=== PATIENT | male | born 1940 | race Two or more races ===

== ENCOUNTER 2017-02-01 22:40 | Emergency (ER) | payer MEDICARE, OTHER ==
[2017-02-01] MEDS ORDERED: FUROSEMIDE INJ/PF 100 MG/10 ML SDV IV ONE (23:04)
[2017-02-01] MEDS ORDERED: FUROSEMIDE INJ/PF 100 MG/10 ML SDV ONE (23:05)
--- NOTE | 2017-02-01 23:14 | ER Document Report ---
ED General - General Chief Complaint: Weakness Stated Complaint: WEAKNESS Time Seen by Provider: 02/01/17 22:59 Notes: Patient is a 76-year-old male with a past medical history of CHF, hypertension, hyperlipidemia, who presents with 3 days of progressively worsening generalized malaise and shortness of breath. Patient states that he feels generally unwell that "I just have no energy". He does know that he has had significant weight gain over the last 3 weeks. Does admit to a significant amount of dietary indiscretions with high sodium content ingestion such as tomato juice. He has been taking his bumetanide and metolazone as directed. He states this feels similar to when he has had volume overload in the past. He has not followed up with his primary care doctor. He denies any associated chest pain. He has not noted that anything seems to improve or worsen his symptoms. - Related Data Allergies/Adverse Reactions: No Known Allergies Allergy (Unverified 02/01/17 22:56) Past Medical History - General Information source: Patient - Social History Smoking Status: Former Smoker Frequency of alcohol use: None Drug Abuse: None Lives with: Spouse/Significant other Family History: Reviewed & Not Pertinent Patient has suicidal ideation: No Patient has homicidal ideation: No Renal/ Medical History: Denies: Hx Peritoneal Dialysis Review of Systems - Review of Systems Notes: Constitutional: Negative for fever. HENT: Negative for sore throat. Eyes: Negative for visual changes. Cardiovascular: Negative for chest pain. Respiratory: Positive for shortness of breath. Gastrointestinal: Negative for abdominal pain, vomiting or diarrhea. Genitourinary: Negative for dysuria. Musculoskeletal: Negative for back pain. Skin: Negative for rash. Neurological: Negative for headaches, weakness or numbness. 10 point ROS negative except as marked above and in HPI. Physical Exam - Vital signs Vitals: Temp Pulse Resp BP Pulse Ox 97.8 F 83 23 H 111/72 90 L 02/01/17 22:42 02/01/17 22:42 02/01/17 22:42 02/01/17 22:42 02/01/17 22:42 Interpretation: Hypoxic, Tachypneic Notes: PHYSICAL EXAMINATION: GENERAL: Appears slightly uncomfortable but no acute distress HEAD: Atraumatic, normocephalic. EYES: Pupils equal round and reactive to light, extraocular movements intact, sclera anicteric, conjunctiva are normal. ENT: nares patent, oropharynx clear without exudates. Moist mucous membranes. NECK: Normal range of motion, supple without lymphadenopathy LUNGS: Diminished breath sounds at the bases bilaterally. Mild tachypnea. HEART: Regular rate and rhythm without murmurs ABDOMEN: Edematous abdominal wall, nontender, normoactive bowel sounds. No guarding, no rebound. No masses appreciated. EXTREMITIES: Normal range of motion, 4+ pitting edema that is equal and symmetric in the bilateral lower extremities NEUROLOGICAL: No focal neurological deficits. Moves all extremities spontaneously and on command. PSYCH: Normal mood, normal affect. SKIN: Warm, Dry, normal turgor, no rashes or lesions noted. Course - Re-evaluation Re-evalutation: 02/01/17 23:12 Patient presents with signs and symptoms consistent with significant volume overload in the setting of CHF. Patient has mild hypoxemia saturating 88% on room air, 92-94% on 2 L by nasal cannula. No acute respiratory distress. Bedside ultrasound does not show any significant B-lines, although he does appear to have diffuse hypokinesis on a bedside echocardiogram. He reports his last ejection fraction was apparently 58% but on a cursory glance on a bedside it does not appear that he continues to have a normal ejection fraction. IVC is grossly distended. His abdomen is distended, but there is no evidence of ascites. He has 4+ pitting edema in the bilateral lower extremities. Patient reports his normal weight is 100 kg although today he is a full 125 kg. He has been taking bumetanide as well as metolazone without relief. Upon arrival, a stat portal chest x-ray was obtained that showed cardiomegaly and vascular congestion but no overt pulmonary edema. Will provide 160 mg of IV Lasix which is a doubling of patient's home dose, fluid restrict the patient. Will also obtain laboratories and reassess. Patient does not yet meet criteria for BiPAP at this time. 02/01/17 23:56 Patient continues to ventilate without difficulty, maintaining 97% oxygen saturation on 2 L by nasal cannula, blood pressure 109 on 95. He is awake and talking to me without any distress. He is already beginning to urinate. His labs unfortunately do show some market derangements. ProBNP is 19,800, troponin is 0.229. His creatinine is also markedly elevated at 4.8 and patient states his baseline creatinine is a partially 2.2-2.3. I suspect that all of this is secondary to a CHF exacerbation with marked volume overload. Unfortunately given his troponin elevation I am unable to keep him here at this hospital and have contacted [facility] for transfer. 02/02/17 00:14 Patient has been accepted for transfer by at [facility]. 02/02/17 0205 Patient continues to rest comfortably, stable for transfer - Vital Signs Vital signs: Temp Pulse Resp BP Pulse Ox 97.4 F 83 19 118/77 88 L 02/02/17 02:08 02/01/17 22:42 02/02/17 02:01 02/02/17 01:46 02/02/17 02:01 - Laboratory Result Diagrams: 02/01/17 22:57 02/01/17 22:46 Laboratory results interpreted by me: 02/01/17 02/01/17 02/01/17 22:46 22:46 22:46 RBC Hgb Hct RDW Plt Count PT 20.8 H APTT 41.7 H Chloride 90 L Carbon Dioxide 32 H BUN 113 H Creatinine 4.80 H Est GFR ( Amer) 14 L Est GFR (Non-Af Amer) 12 L Direct Bilirubin 0.7 H NT-Pro-B Natriuret Pep 56712 H 02/01/17 22:57 RBC 4.06 L Hgb 12.3 L Hct 37.1 L RDW 15.0 H Plt Count 122 L PT APTT Chloride Carbon Dioxide BUN Creatinine Est GFR ( Amer) Est GFR (Non-Af Amer) Direct Bilirubin NT-Pro-B Natriuret Pep - Diagnostic Test Radiology reviewed: Image reviewed, Reports reviewed Radiology results interpreted by me: 02/02/17 03:37 Chest x-ray: Cardiac enlargement. Vascular congestion but no overt pulmonary edema. - EKG Interpretation by Me Additional EKG results interpreted by me: 02/02/17 03:38 Sinus rhythm. Rate 83. Frequent premature ventricular contractions. No ST elevations or depressions. Prolonged QTC at 522. Discharge - Discharge Clinical Impression: Volume overload Qualifiers: Hypervolemia type: unspecified Qualified Code(s): E87.70 - Fluid overload, unspecified CHF exacerbation Qualifiers: Congestive heart failure type: unspecified congestive heart failure type Qualified Code(s): I50.9 - Heart failure, unspecified Acute on chronic renal failure Qualifiers: Acute renal failure type: unspecified Chronic kidney disease stage: unspecified stage Qualified Code(s): N17.9 - Acute kidney failure, unspecified; N18.9 - Chronic kidney disease, unspecified; N18.9 - Chronic kidney disease, unspecified Condition: Fair Disposition: [facility]
[2017-02-01 23:19] LABS: ABSOLUTE EOSINOPHILS # (AUTO) 0.1 10^3/uL (0.0-0.6); ABSOLUTE MONOCYTES (AUTO) 0.6 10^3/uL (0.1-1.4); BASOPHILS % (AUTO) 0.6 % (0-2); EOSINOPHILS % (AUTO) 1.6 % (0-6); HEMATOCRIT 37.1 % (37.9-51.0); HEMOGLOBIN 12.3 g/dL (13.5-17.0); HGB HCT DIFFERENCE -0.2; LYMPHOCYTES % (AUTO) 13.3 % (13-45); MEAN CORPUSCULAR HEMOGLOBIN 30.4 pg (27.0-33.4); MEAN CORPUSCULAR HGB CONC 33.3 g/dL (32.0-36.0); MEAN CORPUSCULAR VOLUME 91 fl (80-97); MONOCYTES % (AUTO) 7.8 % (3-13); RED BLOOD COUNT 4.06 10^6/uL (4.35-5.55); SEGMENTED NEUTROPHILS % (AUTO) 76.7 % (42-78); WHITE BLOOD COUNT 7.9 10^3/uL (4.0-10.5)
[2017-02-01 23:19] LABS: ALANINE AMINOTRANSFERASE 37 U/L (21-72); ALBUMIN 3.9 g/dL (3.5-5.0); ALKALINE PHOSPHATASE 84 U/L (38-126); ANION GAP 18 (5-19); ASPARTATE AMINO TRANSFERASE 29 U/L (17-59); BILIRUBIN,DIRECT 0.7 mg/dL (0.0-0.4); BILIRUBIN,TOTAL 0.9 mg/dL (0.2-1.3); BLOOD UREA NITROGEN 113 mg/dL (7-20); CALCIUM 8.6 mg/dL (8.4-10.2); CARBON DIOXIDE 32 mmol/L (22-30); CHLORIDE 90 mmol/L (98-107); GLUCOSE 104 mg/dL (75-110); POTASSIUM 4.1 mmol/L (3.6-5.0); SODIUM 140.2 mmol/L (137-145); TOTAL PROTEIN 6.6 g/dL (6.3-8.2)
[2017-02-01 23:34] LABS: TROPONIN I 0.229 ng/mL
--- NOTE | 2017-02-01 23:46 | RADIOLOGY REPORT (SQ) ---
EXAM DESCRIPTION: CHEST SINGLE VIEW COMPLETED DATE/TIME: 02/01/2017 11:11 pm REASON FOR STUDY: SOB COMPARISON: None. EXAM PARAMETERS: NUMBER OF VIEWS: One view. TECHNIQUE: Single frontal radiographic view of the chest acquired. RADIATION DOSE: NA LIMITATIONS: None. FINDINGS: LUNGS AND PLEURA: Mild interstitial markings. Small patchiness of the lateral aspect of t he right inferior chest. MEDIASTINUM AND HILAR STRUCTURES: No masses. Contour normal. HEART AND VASCULAR STRUCTURES: Moderate enlargement of the cardiac silhouette. Atherosclerosis. BONES: No acute findings. HARDWARE: None in the chest. OTHER: No other significant finding. IMPRESSION: Small right lower lobar pneumonia/atelectasis. Moderate enlargement of the cardiac silh ouette. TECHNICAL DOCUMENTATION: JOB ID: [id number] [employer]- All Rights Reserved
[2017-02-02 00:06] LABS: PROTHROMBIN TIME 20.8 SEC (11.4-15.4)
[2017-02-02 00:07] LABS: PARTIAL THROMBOPLASTIN TIME 41.7 SEC (23.5-35.8)
[2017-02-02 02:08] VITALS: BP 118/77
--- NOTE | 2017-02-02 14:02 | EKG REPORT ---
SEVERITY:- ABNORMAL ECG - SINUS OR ECTOPIC ATRIAL TACHYCARDIA RUN OF VENTRICULAR PREMATURE COMPLEXES RIGHT BUNDLE BRANCH BLOCK INFERIOR INFARCT, AGE INDETERMINATE CONSIDER ANTERIOR INFARCT : Confirmed by: Mini Hernández MD 02-Feb-2017 14:02:06
== END 2017-02-02 02:12 | disposition short-term general hospital (02) ==
LOC: ER 22:40
DX: E87.70 Fluid overload, unspecified (principal); N17.9 Acute kidney failure, unspecified; N18.9 Chronic kidney disease, unspecified; I50.9 Heart failure, unspecified; R53.1 Weakness; R06.02 Shortness of breath; I11.0 Hypertensive heart disease with heart failure; E78.5 Hyperlipidemia, unspecified
CPT/HCPCS: 93005; 99285; 96374; 36415; 85025; 85610; 85730; 80053; 84484; 83880; 71010; 93010; J1940

== ENCOUNTER → 2017-03-20 | Outpatient (CLI) | payer MEDICARE, OTHER ==
--- NOTE | 2017-03-20 16:46 | RADIOLOGY REPORT (SQ) ---
EXAM DESCRIPTION: ABDOMEN 2 VIEWS COMPLETED DATE/TIME: 03/20/2017 4:38 pm REASON FOR STUDY: IDENTIFY POSITION OF TIP OF DD CATH COMPARISON: None. NUMBER OF VIEWS: Two views. TECHNIQUE: Supine and erect/decubitus radiographic images of the abdomen acquired. LIMITATIONS: None. FINDINGS: FREE AIR: None. No abnormal gas collections. LUNG BASES: Clear. BOWEL GAS PATTERN: Nonobstructive pattern. No dilated loops or air fluid levels. CALCIFICATIONS: No suspicious calcifications. SOFT TISSUES: No gross mass or suggestion of organomegaly. HARDWARE: There is a peritoneal dialysis catheter in place. It is coiled in the right lower quadrant . BONES: No acute fracture. No worrisome bone lesions. OTHER: No other significant finding. IMPRESSION: No acute findings. A peritoneal dialysis catheter is in place and is coiled in the righ t lower quadrant. TECHNICAL DOCUMENTATION: JOB ID: [id number] [employer]- All Rights Reserved
== END ==
LOC: RAD 15:51
PROVIDERS: ATTEND Internal Medicine Nephrology
DX: I95.9 Hypotension, unspecified (principal)
CPT/HCPCS: 74019

== ENCOUNTER 2017-03-21 13:51 | Inpatient (IN) | payer MEDICARE, OTHER ==
--- NOTE | 2017-03-21 16:15 | ER Document Report ---
ED General - General Chief Complaint: Abdominal Swelling Stated Complaint: ABDOMINAL SWELLING Time Seen by Provider: 03/21/17 15:51 Mode of Arrival: Wheelchair Information source: Patient, [facility] Records Notes: This 76-year-old male patient was sent to the emergency room from [facility] to be evaluated for problems with his peritoneal dialysis catheter. The patient was seen here on 02/02/2017, found to be in renal failure with congestive heart failure. He was transferred to [facility] where he had hemodialysis for a while. He was put on a fast track peritoneal dialysis protocol. He was discharged home on 03/17/2017. He went to [facility] on Saturday and had some dialysate placed but by history it did not come back out. It is confusing when he went again, but he at least did go today and was found to have a leak from one of the peritoneal dialysis ports. I called Dr. Alfonso Olivares for clarification and he stated that the patient needed to have a PermCath placed which could be done tomorrow morning and then hemodialysis started tomorrow. He requested I get the patient admitted to the hospitalist service. He is aware that the patient is a little hypotensive compared to baseline, but is otherwise asymptomatic. TRAVEL OUTSIDE OF THE [place] IN LAST 30 DAYS: No - Related Data Allergies/Adverse Reactions: No Known Allergies Allergy (Verified 03/21/17 13:53) Past Medical History - General Information source: Patient, [facility] Records - Social History Smoking Status: Never Smoker Cigarette use (# per day): No Chew tobacco use (# tins/day): No Smoking Education Provided: No Frequency of alcohol use: None Drug Abuse: None Occupation: Retired Lives with: Family Family History: Reviewed & Not Pertinent Patient has suicidal ideation: No Patient has homicidal ideation: No - Past Medical History Cardiac Medical History: Reports: Hx Atrial Fibrillation - Currently no aspirin , Coumadin, or other antiplatelet medication, Hx Congestive Heart Failure, Other - Venous insufficiency Pulmonary Medical History: Reports: None EENT Medical History: Reports: None Neurological Medical History: Reports: None Endocrine Medical History: Reports: None Renal/ Medical History: Reports: Hx End Stage Renal Disease, Hx Peritoneal Dialysis GI Medical History: Reports: None Musculoskeltal Medical History: Reports Hx Arthritis Psychiatric Medical History: Reports: None Past Surgical History: Reports: Hx Cholecystectomy, Hx Orthopedic Surgery - Bone spurs removed from the cervical spine Review of Systems - Review of Systems Constitutional: No symptoms reported EENT: No symptoms reported Cardiovascular: No symptoms reported Respiratory: No symptoms reported Gastrointestinal: See HPI Genitourinary: No symptoms reported Musculoskeletal: Joint pain, Leg swelling, Ankle swelling Skin: Other - Does have some bandages on the left lower extremity Hematologic/Lymphatic: No symptoms reported Neurological/Psychological: No symptoms reported Physical Exam - Vital signs Vitals: Temp Pulse Resp BP Pulse Ox 97.3 F 81 18 94/50 L 94 03/21/17 14:13 03/21/17 14:13 03/21/17 14:13 03/21/17 14:13 03/21/17 14:13 Interpretation: Hypotensive - General General appearance: Appears well, Alert In distress: None - HEENT Head: Normocephalic, Atraumatic Eyes: Normal Pupils: PERRL Neck: Normal - Respiratory Respiratory status: No respiratory distress Breath sounds: Normal - Cardiovascular Rhythm: Regular Heart sounds: Normal auscultation Murmur: No - Abdominal Inspection: Obese Distension: No distension Tenderness: Nontender, Other - Patient has peritoneal dialysis catheter in place - Back Back: Normal - Extremities General upper extremity: Normal inspection General lower extremity: Other - There are some chronic skin thickening and erythematous changes to the lower legs with some bandages on the left lower leg. There is some edema to the lower extremities. Knee: Other - There are osteoarthritic changes to the knees - Neurological Neuro grossly intact: Yes - The patient does seem to have some mild dementia - Psychological Associated symptoms: Normal affect, Normal mood Course - Vital Signs Vital signs: Temp Pulse Resp BP Pulse Ox 97.3 F 81 18 94/50 L 94 03/21/17 14:13 03/21/17 14:13 03/21/17 14:13 03/21/17 14:13 03/21/17 14:13 - Laboratory Result Diagrams: 03/21/17 16:29 03/21/17 16:29 Laboratory results interpreted by me: 03/21/17 03/21/17 03/21/17 16:29 16:29 16:29 RBC 3.35 L Hgb 10.3 L Hct 31.1 L RDW 17.3 H Plt Count 83 L Sodium 131.0 L Potassium 5.5 H Chloride 87 L Carbon Dioxide 21 L Anion Gap 23 H BUN 137 H Creatinine 12.65 H Est GFR ( Amer) 5 L Est GFR (Non-Af Amer) 4 L Calcium 8.1 L Magnesium 2.6 H Direct Bilirubin 1.3 H Alkaline Phosphatase 129 H CK-MB (CK-2) 26.30 H NT-Pro-B Natriuret Pep 28590 H - Diagnostic Test Radiology reviewed: Image reviewed, Reports reviewed - Cardiomegaly, nothing acute - EKG Interpretation by Me EKG shows normal: Sinus rhythm, [place], Intervals, QRS Complexes, ST-T Waves Rate: Normal - 81 Rhythm: NSR [place]/QRS: RBBB When compared to previous EKG there are: No significant change - Compared to - Consults Dr. Olivares Consulted provider: will see as inpatient - Request the patient be admitted to hospitalist service, and the patient get a PermCath placed by tomorrow morning for hemodialysis. Dr. Kin Brown Time consulted: 18:50 Consulted provider: will see as inpatient - Will see in the morning to place a PermCath for dialysis Dr. Salas Time consulted: 19:30 Consulted provider: will come to ER Discharge - Discharge Clinical Impression: Chronic renal failure, stage 5 Disorder of peritoneal dialysis catheter Qualifiers: Encounter type: initial encounter Qualified Code(s): T85.9XXA - Unspecified complication of internal prosthetic device, implant and graft, initial encounter Hypotension Qualifiers: Hypotension type: other hypotension type Qualified Code(s): I95.89 - Other hypotension Condition: Good Disposition: ADMITTED INPATIENT Admitting Provider: Hospitalist Unit Admitted: Telemetry
[2017-03-21 16:55] LABS: ABSOLUTE BASOPHILS # (AUTO) 0.1 10^3/uL (0.0-0.2); ABSOLUTE EOSINOPHILS # (AUTO) 0.1 10^3/uL (0.0-0.6); ABSOLUTE LYMPHOCYTES (AUTO) 0.8 10^3/uL (0.5-4.7); ABSOLUTE MONOCYTES (AUTO) 0.6 10^3/uL (0.1-1.4); ABSOLUTE NEUT (AUTO) 4.1 10^3/uL (1.7-8.2); BASOPHILS % (AUTO) 1.3 % (0-2); EOSINOPHILS % (AUTO) 1.2 % (0-6); HEMATOCRIT 31.1 % (37.9-51.0); HEMOGLOBIN 10.3 g/dL (13.5-17.0); LYMPHOCYTES % (AUTO) 14.2 % (13-45); MEAN CORPUSCULAR HEMOGLOBIN 30.6 pg (27.0-33.4); MEAN CORPUSCULAR VOLUME 93 fl (80-97); MONOCYTES % (AUTO) 10.6 % (3-13); RED BLOOD COUNT 3.35 10^6/uL (4.35-5.55); RED CELL DISTRIBUTION WIDTH 17.3 % (11.5-14.0); SEGMENTED NEUTROPHILS % (AUTO) 72.7 % (42-78); TOTAL CELLS COUNTED % (AUTO) 100 %; WHITE BLOOD COUNT 5.7 10^3/uL (4.0-10.5)
--- NOTE | 2017-03-21 16:58 | RADIOLOGY REPORT (SQ) ---
EXAM DESCRIPTION: CHEST PA/LAT COMPLETED DATE/TIME: 03/21/2017 4:35 pm REASON FOR STUDY: weak, PD cath leak, hypotension COMPARISON: None. EXAM PARAMETERS: NUMBER OF VIEWS: two views TECHNIQUE: Digital Frontal and Lateral radiographic views of the chest acquired. RADIATION DOSE: NA LIMITATIONS: none FINDINGS: LUNGS AND PLEURA: No opacities, masses or pneumothorax. No pleural effusion. MEDIASTINUM AND HILAR STRUCTURES: No masses or contour abnormalities. HEART AND VASCULAR STRUCTURES: Cardiac silhouette is enlarged. BONES: No acute findings. HARDWARE: None in the chest. OTHER: No other significant finding. IMPRESSION: Cardiomegaly. No acute consolidations or pleural effusions are identified TECHNICAL DOCUMENTATION: JOB ID: [id number] [employer]- All Rights Reserved
[2017-03-21 17:25] LABS: PLATELET COUNT 83 10^3/uL (150-450)
[2017-03-21 17:26] LABS: ALANINE AMINOTRANSFERASE 40 U/L (21-72); ALBUMIN 3.8 g/dL (3.5-5.0); ALKALINE PHOSPHATASE 129 U/L (38-126); ASPARTATE AMINO TRANSFERASE 50 U/L (17-59); BILIRUBIN,DIRECT 1.3 mg/dL (0.0-0.4); BILIRUBIN,TOTAL 1.3 mg/dL (0.2-1.3); CALCIUM 8.1 mg/dL (8.4-10.2); CARBON DIOXIDE 21 mmol/L (22-30); CHLORIDE 87 mmol/L (98-107); CREATINE KINASE 129 U/L (55-170); GLUCOSE 76 mg/dL (75-110); MAGNESIUM 2.6 mg/dL (1.6-2.3); POTASSIUM 5.5 mmol/L (3.6-5.0); TOTAL PROTEIN 6.3 g/dL (6.3-8.2)
[2017-03-21 17:38] LABS: CREATINE KINASE MB 26.3 ng/mL (<4.55); TROPONIN I 0.147 ng/mL
[2017-03-21 17:40] LABS: ANION GAP 23 (5-19); BLOOD UREA NITROGEN 137 mg/dL (7-20)
--- NOTE | 2017-03-21 18:44 | EKG REPORT ---
SEVERITY:- ABNORMAL ECG - SINUS RHYTHM RIGHT BUNDLE BRANCH BLOCK INFERIOR INFARCT, AGE INDETERMINATE CONSIDER ANTERIOR INFARCT : Confirmed by: Peyman Porter MD 21-Mar-2017 18:43:07
[2017-03-21] MEDS ORDERED: ACETAMINOPHEN 325 MG TABLET PO ONE (19:39)
[2017-03-21 22:49] LABS: AMORPHOUS SEDIMENT,URINE TRACE /HPF; APPEARANCE,URINE CLOUDY; BILIRUBIN,URINE SMALL (NEGATIVE); COLOR,URINE YELLOW; GLUCOSE, URINE NEGATIVE (NEGATIVE); KETONES,URINE NEGATIVE (NEGATIVE); LEUKOCYTE ESTERASE,URINE TRACE (NEGATIVE); NITRITE,URINE NEGATIVE (NEGATIVE); PROTEIN,URINE 100 mg/dL (NEGATIVE); URINE SPECIFIC GRAVITY 1.016; UROBILINOGEN,URINE NEGATIVE mg/dL (<2.0)
[2017-03-22] MEDS ORDERED: SILVER SULFADIAZINE 1% CREAM 25 GM TP ONE (01:00)
[2017-03-22] MEDS: ACETAMINOPHEN 325 MG TABLET PO PRN ×3 (01:07→19:03)
[2017-03-22] MEDS: LEVOTHYROXINE SODIUM 0.05 MG TABLET PO SCH (05:39)
[2017-03-22] MEDS: MIDODRINE HCL 5 MG TABLET PO SCH ×3 (05:39→23:50)
--- NOTE | 2017-03-22 08:01 | PDOC H&P ---
History of Present Illness Admission Date/PCP: 03/21/17 19:56 Berenice ARREOLA MD History of Present Illness: ARPITA EUGENE JR is a 76 year old male with past medical history of end-stage renal disease, A. fib, CHF, hypothyroidism, chronic hypotension on midodrine, hyperlipidemia who presents to the emergency department for needed hemodialysis. He reports that he got home on Saturday from [facility], and his PD catheter has been leaking. He reports that he has been nauseated. Patient is to be set up for hemodialysis per reports from nephrology. Past Medical History Cardiac Medical History: Reports: Atrial Fibrillation - Currently no aspirin, Coumadin, or other antiplatelet medication, Congestive Heart Failure, Other - Venous insufficiency Pulmonary Medical History: Reports: None EENT Medical History: Reports: None Neurological Medical History: Reports: None Endocrine Medical History: Reports: None Renal/ Medical History: Reports: End Stage Renal Disease GI Medical History: Reports: None Musculoskeltal Medical History: Reports: Arthritis Psychiatric Medical History: Reports: None Past Surgical History Past Surgical History: Reports: Cholecystectomy, Orthopedic Surgery - Bone spurs removed from the cervical spine Social History Lives with: Family Smoking Status: Never Smoker - Advance Directive Resuscitation Status: Full Code Surrogate healthcare decision maker:: Ochoa, Family History Family History: COPD Parental Family History Reviewed: Yes Children Family History Reviewed: Yes Sibling(s) Family History Reviewed.: Yes Medication/Allergy Home Medications: Atorvastatin Calcium [Lipitor 40 mg Tablet] 40 mg PO QHS 03/21/17 Calcium Acetate [Phoslo 667 Mg Capsule] 1,334 mg PO MEALS 03/21/17 Folic Acid/Vit B Complex and C [Dialyvite Tablet] 1 tab PO DAILY 03/21/17 L. Rhamnosus GG/Inulin [Culturelle Capsule] 1 each PO DAILY 03/21/17 Levothyroxine Sodium [Synthroid 50 Mcg Tablet] 50 mcg PO Q6AM 03/21/17 Midodrine HCl [Proamatine 5 Mg Tablet] 5 mg PO Q8 03/21/17 Ropinirole HCl [Requip 2 Mg Tablet] 5 mg PO Q12 03/21/17 Allergies/Adverse Reactions: No Known Allergies Allergy (Verified 03/21/17 13:53) Review of Systems Constitutional: PRESENT: fatigue. ABSENT: chills, fever(s), headache(s), weight gain, weight loss Eyes: ABSENT: visual disturbances Ears: ABSENT: hearing changes Cardiovascular: ABSENT: chest pain, dyspnea on exertion, edema, orthropnea, palpitations Respiratory: ABSENT: cough, hemoptysis Gastrointestinal: PRESENT: abdominal pain, nausea, vomiting. ABSENT: constipation, diarrhea, hematemesis, hematochezia Genitourinary: ABSENT: dysuria, hematuria Musculoskeletal: ABSENT: joint swelling Integumentary: ABSENT: rash, wounds Neurological: ABSENT: abnormal gait, abnormal speech, confusion, dizziness, focal weakness, syncope Psychiatric: ABSENT: anxiety, depression, homidical ideation, suicidal ideation Endocrine: ABSENT: cold intolerance, heat intolerance, polydipsia, polyuria Hematologic/Lymphatic: ABSENT: easy bleeding, easy bruising Physical Exam Vital Signs: Temp Pulse Resp BP Pulse Ox 97.4 F 56 L 22 H 92/74 L 94 03/21/17 23:42 03/21/17 23:42 03/21/17 23:42 03/21/17 23:42 03/21/17 23:42 Intake & Output 03/20/17 03/21/17 03/22/17 06:59 06:59 06:59 Weight 111.3 kg General appearance: PRESENT: mild distress, obese, well-developed, well- nourished Head exam: PRESENT: atraumatic, normocephalic Eye exam: PRESENT: conjunctiva pink, EOMI, PERRLA. ABSENT: scleral icterus Ear exam: PRESENT: normal external ear exam Mouth exam: PRESENT: moist, tongue midline Neck exam: PRESENT: JVD. ABSENT: lymphadenopathy, thyromegaly, tracheal deviation Respiratory exam: PRESENT: rales, symmetrical, tachypnea, unlabored. ABSENT: rhonchi, wheezes Cardiovascular exam: PRESENT: +S1, +S2, systolic murmur. ABSENT: diastolic murmur, rubs Pulses: PRESENT: normal dorsalis pedis pul Vascular exam: PRESENT: normal capillary refill GI/Abdominal exam: PRESENT: distended, hypoactive bowel sounds, soft, tenderness. ABSENT: firm, guarding, mass, organolmegaly, rebound, rigid Rectal exam: PRESENT: deferred Extremities exam: PRESENT: full ROM, other - 3+ bilateral lower extremity edema , stasis dermatitis. ABSENT: calf tenderness, clubbing Neurological exam: PRESENT: alert, awake, oriented to person, oriented to place , oriented to time, oriented to situation, CN II-XII grossly intact. ABSENT: motor sensory deficit Psychiatric exam: PRESENT: appropriate affect, normal mood. ABSENT: homicidal ideation, suicidal ideation Skin exam: PRESENT: dry, skin tears, warm. ABSENT: cyanosis, rash Results Laboratory Results: 03/21/17 22:27 Urine Color YELLOW Urine Appearance CLOUDY Urine pH 5.0 Ur Specific Colbert 1.016 Urine Protein 100 H Urine Glucose (UA) NEGATIVE Urine Ketones NEGATIVE Urine Blood SMALL H Urine Nitrite NEGATIVE Ur Leukocyte Esterase TRACE H Urine RBC (Auto) 1 Impressions: Chest X-Ray 03/21/17 16:03 IMPRESSION: Cardiomegaly. No acute consolidations or pleural effusions are identified Assessment & Plan - Diagnosis (1) CKD (chronic kidney disease) stage V requiring chronic dialysis Is this a current diagnosis for this admission?: Yes Plan: Consult nephrology and vascular surgery for placement of dialysis catheter and initial dialysis (2) Hypothyroidism Is this a current diagnosis for this admission?: Yes Plan: Check TSH (3) Disorder of peritoneal dialysis catheter Qualifiers: Encounter type: initial encounter Qualified Code(s): T85.9XXA - Unspecified complication of internal prosthetic device, implant and graft, initial encounter Is this a current diagnosis for this admission?: Yes (4) Hypotension Qualifiers: Hypotension type: other hypotension type Qualified Code(s): I95.89 - Other hypotension Is this a current diagnosis for this admission?: Yes Plan: Continue midodrine - Time Time Spent: 30 to 50 Minutes
[2017-03-22] MEDS: ROPINIROLE HCL 2 MG TABLET PO SCH (10:19)
[2017-03-22] MEDS: DOCUSATE SODIUM 100 MG CAPSULE PO SCH ×2 (10:19→20:05)
[2017-03-22] MEDS: CALCIUM ACETATE 667 MG CAPSULE PO SCH ×3 (10:19→20:05)
[2017-03-22] MEDS ORDERED: PIPERACILLIN SODIUM/TAZOBACTAM 3.375 GM in NORMAL SALINE 100 ML IV ONE (15:00)
--- NOTE | 2017-03-22 15:01 | PDOC CONSULTATION ---
Consultation Consult Date: 03/22/17 Consult reason:: Malfunctioning PD catheter, fluid overload, Hyperkalemia, Hypotension, ESRD for HD. History of Present Illness Admission Date/PCP: 03/21/17 19:56 Berenice ARREOLA MD History of Present Illness: ARPITA EUGENE JR is a 76 year old male with past medical history of end-stage renal disease, A. fib, CHF, hypothyroidism, chronic hypotension on midodrine, hyperlipidemia who presents to the emergency department for needed hemodialysis as he had peritoneal leak while attempting to be initiated on Peritoneal diaysis at [facility]. He was also hypotensive, had hyperkalemia and felt weak. He had been in [facility] from around [facility] and developed acute on CKD 4 leading to ESRD and was initially initiated on Hemodialyis via a IJ catheter which malfunctioned for reasons which is unclear. Then he was initiated on Fast track Peritoneal dialysis and and discharged home approx a week ago. Apparently he has been hypotensive during his stay over there as he was discharged home on Midodrine 5 mg. He denied any fever or chills, chest pains, skin rashes. Has chronic venous stasis with no symptoms to indicate Cellulitis. He was being trained on PD at [facility]. He has had difficulty in drainage of PD fluid and he had to lay over his left side to get some of the fluid out of him. and the PD nurse showed induration around the umbilicus. Then when you pushed on it it expressed a clear PD fluid coming out via a Lapascopic port wound on the left of the umbilicus suggestive of a peritoneal leak. Therefore the PD dialysis training has been currently aborted and plans were made to convert him to HD via a Permacath. I discussed his case with DR Brown who has gone on to put a right temporary femoral cath to have HD today and later next week to attempt placement of a IJ Permacath. He is currently being seen on HD. He does not look healthy. He denies any abdominal pains, fever or chills.No c/o chest pains, dyspnea. He was given 500 cc of priming fluids pre dialysis and his systolic is in the 70's. He however says he is doing fine- ? being stoic. Orders were discussed with the treating rotating equipment specialist to prime another 500 cc in 2 split boluses and see if he will respond. He has been given his Midodrine 10 mg in AM and I have asked his next due dose to be given now. I did do a random cortisol level yesterday as OP and it came back in the 30 's. Blood c&s pending. On review of his cxr, he has a enlarged cardiac config. I have ordered a stat ECHO and I also discussed his status with Jose Alfredo Davis who is his treating Hospitalist. I recommend starting broad spectrum antibiotics. Meanwhile if his BP does not respond to present measures he needs to be transferred to the ICU and begun on pressors while plans are being made to transfer him to [facility] for further evaluation and initiation of CRRT. Past Medical History Cardiac Medical History: Reports: Atrial Fibrillation - Currently no aspirin, Coumadin, or other antiplatelet medication, Hypertension-primary, Other - Venous insufficiency Pulmonary Medical History: Reports: None EENT Medical History: Reports: None Neurological Medical History: Reports: None Endocrine Medical History: Reports: None Renal/ Medical History: Reports: End Stage Renal Disease GI Medical History: Reports: None Musculoskeltal Medical History: Reports: Arthritis Psychiatric Medical History: Reports: None Past Surgical History Past Surgical History: Reports: Cholecystectomy, Orthopedic Surgery - Bone spurs removed from the cervical spine Social History Lives with: Family Smoking Status: Never Smoker Frequency of Alcohol Use: None Hx Recreational Drug Use: No Hx Prescription Drug Abuse: No - Advance Directive Resuscitation Status: Full Code Family History Parental Family History Reviewed: No Children Family History Reviewed: No Sibling(s) Family History Reviewed.: No Medication/Allergy Home Medications: Atorvastatin Calcium [Lipitor 40 mg Tablet] 40 mg PO QHS 03/21/17 Calcium Acetate [Phoslo 667 Mg Capsule] 1,334 mg PO MEALS 03/21/17 Folic Acid/Vit B Complex and C [Dialyvite Tablet] 1 tab PO DAILY 03/21/17 L. Rhamnosus GG/Inulin [Culturelle Capsule] 1 each PO DAILY 03/21/17 Levothyroxine Sodium [Synthroid 50 Mcg Tablet] 50 mcg PO Q6AM 03/21/17 Midodrine HCl [Proamatine 5 Mg Tablet] 5 mg PO Q8 03/21/17 Ropinirole HCl [Requip 2 Mg Tablet] 5 mg PO Q12 03/21/17 Allergies/Adverse Reactions: No Known Allergies Allergy (Verified 03/21/17 13:53) Review of Systems Constitutional: PRESENT: anorexia, fatigue, weakness. ABSENT: chills, fever(s) , headache(s), night sweats Cardiovascular: PRESENT: dyspnea on exertion, edema. ABSENT: orthropnea, palpitations Gastrointestinal: ABSENT: abdominal pain, bloating, diarrhea, dysphagia, vomiting Genitourinary: ABSENT: dysuria, hematuria Neurological: ABSENT: confusion, convulsions, focal weakness Physical Exam Vital Signs: Temp Pulse Resp BP Pulse Ox 97.3 F 64 20 88/32 L 97 03/22/17 12:00 03/22/17 12:00 03/22/17 12:00 03/22/17 12:00 03/22/17 12:00 Intake & Output 03/21/17 03/22/17 03/23/17 06:59 06:59 06:59 Weight 111.3 kg General appearance: PRESENT: no acute distress, morbidly obese Eye exam: PRESENT: conjunctiva pink, EOMI, PERRLA. ABSENT: nystagmus Ear exam: PRESENT: normal external ear exam Mouth exam: PRESENT: moist, neck supple Neck exam: ABSENT: lymphadenopathy, meningismus, tenderness, thyromegaly, tracheal deviation Respiratory exam: PRESENT: clear to auscultation chaparrita, crackles, symmetrical. ABSENT: rhonchi Cardiovascular exam: PRESENT: +S1, +S2, systolic murmur GI/Abdominal exam: PRESENT: normal bowel sounds, soft. ABSENT: organomegaly, tenderness Extremities exam: PRESENT: +1 edema - with venous stasis. Neurological exam: PRESENT: alert, awake, oriented to person, oriented to place Skin exam: ABSENT: cyanosis, erythema Results Laboratory Results: 03/21/17 22:27 Urine Color YELLOW Urine Appearance CLOUDY Urine pH 5.0 Ur Specific [place] 1.016 Urine Protein 100 H Urine Glucose (UA) NEGATIVE Urine Ketones NEGATIVE Urine Blood SMALL H Urine Nitrite NEGATIVE Ur Leukocyte Esterase TRACE H Urine RBC (Auto) 1 Impressions: Chest X-Ray 03/21/17 16:03 IMPRESSION: Cardiomegaly. No acute consolidations or pleural effusions are identified Assessment & Plan - Diagnosis (1) ESRD needing dialysis Plan: Being converted to HD after developing a peritoneal leak noticed while he was being trained to continue PD at [facility]. Therefore PD has been currently aborted to have him be on HD and look at the PD a month or so later. However having problems in doing HD given his Hypotension on unclear etiology. He is on max Midodrine. He has been primed with NS but yet is still hypotensive. If we cannot UF him ,then he needs to be transferred out for CRRT, especially with his tendency for hyperkalemia. Discussed at length with hospitalist. Orders were discussed with treating HD RN. (2) Hyperkalemia Plan: See if we can do a gentle HD with him being Hypotensive. Needs CRRT most likely unless his hypotension resolves. (3) Disorder of peritoneal dialysis catheter Qualifiers: Encounter type: initial encounter Qualified Code(s): T85.9XXA - Unspecified complication of internal prosthetic device, implant and graft, initial encounter Is this a current diagnosis for this admission?: Yes Plan: As mentioned earlier. Will rest his PD for now and will revisit paola month later.Discussed with Dr Brown who agrees. No evidence to indicate any Peritonitis. (4) Hypotension Qualifiers: Hypotension type: other hypotension type Qualified Code(s): I95.89 - Other hypotension Is this a current diagnosis for this admission?: Yes Plan: Unclear etiology. Currently on Midodrine. Normal cortisol. This is preventing a proper dialysis unless we can get him on pressors to elevate BP. Will get stat ECHO and start broad spectrum Antibiotics. Transfer to ICU and need transfer out for expectant CRRT. Discussed with hospitalist.
[2017-03-22] MEDS ORDERED: HEPARIN SOD (PORCINE) 1,000 UNIT/ML 10 ML VIAL IV PRN (15:52)
[2017-03-22] MEDS ORDERED: DEXTROSE 5%-WATER 250 ML with NOREPINEPHRINE BITARTRATE 4 MG IV PRN ×2 (17:00)
[2017-03-22 17:01] LABS: HEMATOCRIT 29.6 % (37.9-51.0); HEMOGLOBIN 9.7 g/dL (13.5-17.0); MEAN CORPUSCULAR HEMOGLOBIN 30.2 pg (27.0-33.4); MEAN CORPUSCULAR HGB CONC 32.7 g/dL (32.0-36.0); MEAN CORPUSCULAR VOLUME 93 fl (80-97); RED CELL DISTRIBUTION WIDTH 17.8 % (11.5-14.0); WHITE BLOOD COUNT 5.4 10^3/uL (4.0-10.5)
[2017-03-22 17:03] LABS: PLATELET COUNT 71 10^3/uL (150-450)
[2017-03-22 17:19] LABS: ALANINE AMINOTRANSFERASE 37 U/L (21-72); ALBUMIN 3.4 g/dL (3.5-5.0); ALKALINE PHOSPHATASE 111 U/L (38-126); ANION GAP 13 (5-19); ASPARTATE AMINO TRANSFERASE 40 U/L (17-59); BILIRUBIN,DIRECT 0.8 mg/dL (0.0-0.4); BILIRUBIN,TOTAL 1.2 mg/dL (0.2-1.3); BLOOD UREA NITROGEN 70 mg/dL (7-20); CALCIUM 7.9 mg/dL (8.4-10.2); CARBON DIOXIDE 29 mmol/L (22-30); CHLORIDE 92 mmol/L (98-107); GLUCOSE 70 mg/dL (75-110); POTASSIUM 3.8 mmol/L (3.6-5.0); SODIUM 133.8 mmol/L (137-145); TOTAL PROTEIN 5.7 g/dL (6.3-8.2)
[2017-03-22] MEDS ORDERED: DEXTROSE 5%-WATER 250 ML with VASOPRESSIN 100 UNIT IV PRN ×4 (18:08→18:11)
[2017-03-22] MEDS ORDERED: VANCOMYCIN HCL 1,500 MG in DEXTROSE 5%-WATER 250 ML IV ONE (18:30)
[2017-03-22] MEDS ORDERED: DEXTROSE 5%-WATER 250 ML with PHENYLEPHRINE HCL 40 MG IV PRN ×2 (18:33)
--- NOTE | 2017-03-22 18:38 | XCELERA REPORT ---
[address] [address] Transthoracic Echocardiogram Report Name: ARPITA EUGENE JR Age: 76 yrs Gender: Male : 1940 Patient Status: Inpatient Patient Location: [address] [place] [address] Study Date: 03/22/2017 03:47 PM Height: 72 in Weight: 245 lb BSA: 2.3 m2 Procedure: A complete two-dimensional transthoracic echocardiogram was performed (2D, M-mode, spectral and color flow Doppler). The study was technically adequate with some images being suboptimal in quality. Reason For Study: Hypotension, volume overlaod, ?effusion Ordering Physician: HERBIE RIVERS Performed By: Carolin Alanis Interpretation Summary The left ventricular ejection fraction is normal. There is mild to moderate concentric left ventricular hypertrophy. The left ventricle is grossly normal size. Doppler measurements suggest pseudonormalized left ventricular relaxation, which is associated with grade II/IV or mild to moderate diastolic dysfunction Wall motion cannot be accurately commented on, but no definite regional wall motion abnormalities noted. The right ventricle is moderately dilated. The right ventricular systolic function is normal. The left atrium is mildly dilated. The right atrium is mildly dilated. There is a trace amount of mitral regurgitation There is no mitral valve stenosis. No aortic regurgitation is present. There is no aortic valve stenosis There is a trace to mild amount of tricuspid regurgitation There is moderate pulmonary hypertension by echo Right ventricular systolic pressure is estimated to be elevated at 40- 50mmHg. The aortic root is not well visualized. The inferior vena cava appeared normal and decreased < 50% with respiration (RAP 10-15 mmHg) Minimal pericardial effusion. MMode/2D Measurements & Calculations RVDd: 3.6 cm LVIDd: 4.5 cm FS: 30.0 % Ao root diam: 3.1 cm IVSd: 1.2 cm LVIDs: 3.2 cm EDV(Teich): 94.6 ml LVPWd: 1.2 cm ESV(Teich): 40.3 ml Ao root area: 7.8 cm2 EF(Teich): 57.4 % LA dimension: 3.8 cm Doppler Measurements & Calculations MV E max diogo: MV P1/2t max diogo: Ao V2 max: LV V1 max P.9 cm/sec 82.9 cm/sec 111.9 cm/sec 4.9 mmHg MV A max diogo: MV P1/2t: 67.2 msec Ao max PG: LV V1 max: 42.9 cm/sec 5.0 mmHg 110.6 cm/sec MV E/A: 1.9 MVA(P1/2t): 3.3 cm2 MV dec slope: 361.4 cm/sec2 MV dec time: 0.23 sec PA V2 max: PI end-d diogo: TR max diogo: 80.9 cm/sec 126.2 cm/sec 290.5 cm/sec PA max PG: TR max P.6 mmHg 33.8 mmHg Left Ventricle The left ventricle is grossly normal size. There is mild to moderate concentric left ventricular hypertrophy. The left ventricular ejection fraction is normal. Doppler measurements suggest pseudonormalized left ventricular relaxation, which is associated with grade II/IV or mild to moderate diastolic dysfunction. Wall motion cannot be accurately commented on, but no definite regional wall motion abnormalities noted. Right Ventricle The right ventricle is moderately dilated. There is normal right ventricular wall thickness. The right ventricular systolic function is normal. Atria The right atrium is mildly dilated. The left atrium is mildly dilated. Interarterial septum not well visualized and not well dopplered. Cannot comment on ASD/PFO presence. Mitral Valve There is mild mitral annular calcification. There is no mitral valve stenosis. There is a trace amount of mitral regurgitation. Aortic Valve The aortic valve is mildly calcified. There is no aortic valve stenosis. No aortic regurgitation is present. Tricuspid Valve The tricuspid valve is not well visualized secondary to technical limitations. There is no tricuspid stenosis. There is a trace to mild amount of tricuspid regurgitation. There is moderate pulmonary hypertension by echo. Right ventricular systolic pressure is estimated to be elevated at 40-50mmHg. Pulmonic Valve The pulmonic valve is not well visualized. Great Vessels The aortic root is not well visualized. The inferior vena cava appeared normal and decreased < 50% with respiration (RAP 10-15 mmHg). Effusions Minimal pericardial effusion. : HERBIE RIVERS > Brittany Jackson
--- NOTE | 2017-03-22 18:43 | RADIOLOGY REPORT (SQ) ---
EXAM DESCRIPTION: CHEST SINGLE VIEW COMPLETED DATE/TIME: 03/22/2017 6:33 pm REASON FOR STUDY: CENTRAL LINE PLACEMENT COMPARISON: 03/21/2017. EXAM PARAMETERS: NUMBER OF VIEWS: One view. TECHNIQUE: Single frontal radiographic view of the chest acquired. RADIATION DOSE: NA LIMITATIONS: None. FINDINGS: LUNGS AND PLEURA: No opacities, masses or pneumothorax. No pleural effusion. MEDIASTINUM AND HILAR STRUCTURES: No masses. Contour normal. HEART AND VASCULAR STRUCTURES: Cardiomegaly unchanged. BONES: No acute findings. HARDWARE: Central line. Tip of the level of the superior vena cava. OTHER: No other significant finding. IMPRESSION: CENTRAL LINE POSITION DESCRIBED. NO PNEUMOTHORAX. NO SIGNIFICANT CHANGE IN APPEARAN CE OF THE CHEST. TECHNICAL DOCUMENTATION: JOB ID: [id number] [employer]- All Rights Reserved
[2017-03-22] MEDS ORDERED: VASOPRESSIN INJ 20 UNIT/1 ML VIAL ONE (18:49)
--- NOTE | 2017-03-22 19:15 | PDOC CONSULTATION ---
Consultation Consult Date: 03/22/17 Attending physician:: HERBIE RIVERS Consult reason:: Hypotension History of Present Illness Admission Date/PCP: 03/21/17 19:56 K V CHLOÉ ARREOLA MD Patient complains of: Generally unwell. Patient noted to be confused and agitated History of Present Illness: ARPITA EUGENE JR is a 76 year old male with past medical history of end-stage renal disease, A. fib, CHF, hypothyroidism, chronic hypotension on midodrine, hyperlipidemia who presents to the emergency department for needed hemodialysis as he had peritoneal leak while attempting to be initiated on Peritoneal diaysis at [facility]. He was also hypotensive, had hyperkalemia and felt weak. He had been in [facility] from around [facility] and developed acute on CKD 4 leading to ESRD and was initially initiated on Hemodialyis via a IJ catheter which malfunctioned for reasons which is unclear. Then he was initiated on Fast track Peritoneal dialysis and and discharged home approx a week ago. Apparently he has been hypotensive during his stay over there as he was discharged home on Midodrine 5 mg. He denied any fever or chills, chest pains, skin rashes. Has chronic venous stasis with no symptoms to indicate Cellulitis. He was being trained on PD at [facility]. He has had difficulty in drainage of PD fluid and he had to lay over his left side to get some of the fluid out of him. and the PD nurse showed induration around the umbilicus. Then when you pushed on it it expressed a clear PD fluid coming out via a Lapascopic port wound on the left of the umbilicus suggestive of a peritoneal leak. Therefore the PD dialysis training has been currently aborted and plans were made to convert him to HD via a Permacath. I discussed his case with DR Brown who has gone on to put a right temporary femoral cath to have HD today and later next week to attempt placement of a IJ Permacath. He is currently being seen on HD. He does not look healthy. He denies any abdominal pains, fever or chills.No c/o chest pains, dyspnea. He was given 500 cc of priming fluids pre dialysis and his systolic is in the 70's. He however says he is doing fine- ? being stoic. Orders were discussed with the treating scale technician to prime another 500 cc in 2 split boluses and see if he will respond. He has been given his Midodrine 10 mg in AM and I have asked his next due dose to be given now. I did do a random cortisol level yesterday as OP and it came back in the 30 's. Blood c&s pending. On review of his cxr, he has a enlarged cardiac config. I have ordered a stat ECHO and I also discussed his status with Jose Alfredo Rivers who is his treating Hospitalist. I recommend starting broad spectrum antibiotics. Meanwhile if his BP does not respond to present measures he needs to be transferred to the ICU and begun on pressors while plans are being made to transfer him to [facility] for further evaluation and initiation of CRRT. This history was reviewed and confirmed. When I saw the patient he was noted to be agitated and confused and not able to talk. He was noted to be able to move all 4 extremities however. Patient had a central line placed. This was placed by the surgeon process control technician. Plans are for patient to have peripheral arterial line placed. Patient did have a 2D echo which was reviewed. Surprisingly patient's LVEF is noted to be WNL. Did not have any significant or critical valve disease. Minimal pericardial effusion was noted. RV was noted to be enlarged but RV function seems well preserved. Mild to moderate pulmonary hypertension was noted in the absence of presumed pulmonary stenosis. Past Medical History Cardiac Medical History: Reports: Atrial Fibrillation - Currently no aspirin, Coumadin, or other antiplatelet medication, Congestive Heart Failure, Other - Venous insufficiency Pulmonary Medical History: Reports: None EENT Medical History: Reports: None Neurological Medical History: Reports: None Endocrine Medical History: Reports: None Renal/ Medical History: Reports: End Stage Renal Disease GI Medical History: Reports: None Musculoskeltal Medical History: Reports: Arthritis Psychiatric Medical History: Reports: None Past Surgical History Past Surgical History: Reports: Cholecystectomy, Orthopedic Surgery - Bone spurs removed from the cervical spine, Other - Dialysis related interventions Social History Information Source: [facility] Records Lives with: Family Smoking Status: Never Smoker Frequency of Alcohol Use: None Hx Recreational Drug Use: No Hx Prescription Drug Abuse: No - Advance Directive Resuscitation Status: Full Code Surrogate healthcare decision maker:: Surrogate decision maker not identified Family History Family History: COPD Parental Family History Reviewed: Yes Children Family History Reviewed: Yes Sibling(s) Family History Reviewed.: Yes Medication/Allergy Home Medications: Atorvastatin Calcium [Lipitor 40 mg Tablet] 40 mg PO QHS 01/11/18 Calcium Acetate [Phoslo 667 Mg Capsule] 1,334 mg PO MEALS 03/21/17 Folic Acid/Vit B Complex and C [Dialyvite Tablet] 1 tab PO DAILY 03/21/17 L. Rhamnosus GG/Inulin [Culturelle Capsule] 1 each PO DAILY 03/21/17 Levothyroxine Sodium [Synthroid 50 Mcg Tablet] 50 mcg PO Q6AM 03/21/17 Midodrine HCl [Proamatine 5 Mg Tablet] 5 mg PO Q8 03/21/17 Ropinirole HCl [Requip 2 Mg Tablet] 5 mg PO Q12 03/21/17 Allergies/Adverse Reactions: No Known Allergies Allergy (Verified 03/21/17 13:53) Review of Systems ROS unobtainable: Due to mental status Physical Exam Vital Signs: Temp Pulse Resp BP Pulse Ox 97.3 F 58 L 20 88/32 L 97 03/22/17 12:00 03/22/17 14:00 03/22/17 12:00 03/22/17 12:00 03/22/17 12:00 Intake & Output 03/21/17 03/22/17 03/23/17 06:59 06:59 06:59 Intake Total 600 Output Total 0 Balance 600 Weight 111.3 kg Exam: GENERAL: well-nourished and in no acute distress. Patient is alert but not oriented to place time or person. Patient noted to be agitated. HEAD: Atraumatic, normocephalic. EYES: Pupils equal round and reactive to light, extraocular movements intact, sclera anicteric, conjunctiva are normal. ENT: TMs normal, nares patent, oropharynx clear without exudates. Moist mucous membranes. No oral ulcerations or bleeding gums noted NECK: supple without lymphadenopathy or JVD. Trachea is central. No cervical or axillary lymphadenopathy noted. Carotids are 2+ LUNGS: Breath sounds bibasilar fine crackles at bases. No significant dullness noted. CHEST: Palpation of chest wall shows no significant chest wall tenderness. HEART: [place] [employer], No PSH, 2/6 INES aortic area, 1/6 dumont systolic murmur mitral area, rubs or gallops. ABDOMEN: Borderline form, mildly distended abdomen. Bowel sounds reduced. Tenderness could not be appreciated. No masses appreciated. EXTREMITIES: Pedal pulses are 1-2+, no calf tenderness noted, 1-2+ pedal edema noted. No clubbing or cyanosis. Chronic dermatitis changes noted lower legs. Superficial ulceration noted left leg. NEUROLOGICAL: Patient is alert but is not able to participate in neurological exam because of patient's current mental status PSYCH: Patient cannot participate in a neurologic and psych exam because of the patient's current mental status SKIN: Chronic dermatitis changes noted lower legs. MUSCULOSKELETAL EXAM: No significant joint swelling noted. Patient not able to participate in musculoskeletal strength exam. Results Laboratory Results: 03/22/17 16:45 03/22/17 16:45 03/21/17 03/22/17 03/22/17 22:27 16:45 16:45 WBC 5.4 RBC 3.20 L Hgb 9.7 L Hct 29.6 L MCV 93 MCH 30.2 MCHC 32.7 RDW 17.8 H Plt Count 71 L Sodium 133.8 L Potassium 3.8 Chloride 92 L Carbon Dioxide 29 Anion Gap 13 BUN 70 H Creatinine 7.05 H Est GFR ( Amer) 9 L Est GFR (Non-Af Amer) 8 L Glucose 70 L Calcium 7.9 L Total Bilirubin 1.2 AST 40 ALT 37 Alkaline Phosphatase 111 Total Protein 5.7 L Albumin 3.4 L Urine Color YELLOW Urine Appearance CLOUDY Urine pH 5.0 Ur Specific [place] 1.016 Urine Protein 100 H Urine Glucose (UA) NEGATIVE Urine Ketones NEGATIVE Urine Blood SMALL H Urine Nitrite NEGATIVE Ur Leukocyte Esterase TRACE H Urine RBC (Auto) 1 03/22/17 16:45 Troponin I 0.250 EKG Comments: Low voltage QRS complex throughout. Patient noted to be in sinus rhythm, right bundle branch block pattern. Cannot rule out prior anterior and inferior TN but echocardiogram shows normal wall motion. Impressions: Chest X-Ray 03/22/17 00:00 IMPRESSION: CENTRAL LINE POSITION DESCRIBED. NO PNEUMOTHORAX. NO SIGNIFICANT CHANGE IN APPEARANCE OF THE CHEST. Assessment & Plan - Diagnosis (1) Elevated troponin I level Is this a current diagnosis for this admission?: Yes (2) Sepsis Qualifiers: Sepsis type: sepsis due to unspecified organism Qualified Code(s): A41.9 - Sepsis, unspecified organism Is this a current diagnosis for this admission?: Yes (3) Abnormal electrocardiogram Is this a current diagnosis for this admission?: Yes (4) ESRD needing dialysis Is this a current diagnosis for this admission?: Yes (5) Hypotension Qualifiers: Hypotension type: other hypotension type Qualified Code(s): I95.89 - Other hypotension Is this a current diagnosis for this admission?: Yes (6) Septic shock Is this a current diagnosis for this admission?: Yes - Notes Notes: Troponin I elevation: Most likely related to sepsis based on echocardiogram report however patient does have abnormal EKG therefore a small TN cannot be entirely ruled out. At this point if internal bleeding is excluded, may consider heparin drip. Will recommend high potency statin therapy. Beta- blockers currently contraindicated due to hypotension. May use a small dose aspirin. Sepsis: Patient used to have peritoneal dialysis. Possible peritoneal infection. Recommend broad-spectrum antibiotics. Hypotension: LVEF normal. Recommend vasopressin and Dominic-Synephrine as initial pressors of choice could use norepinephrine drip as well. End-stage renal disease needing dialysis: I am told patient is on transfer list to [facility] as a dialysis cannot be performed here due to low blood pressure. Patient noted to be in mild respiratory distress therefore may have some ongoing CHF secondary to diastolic dysfunction. Will recommend early intubation and artificial ventilation to support respirations to prevent spiraling down. - Time Time Spent: 50 to 70 Minutes - CODE STATUS was discussed, patient remains full code. Surrogate decision-maker not identified. Multiple medical problems were addressed. More than 50% of the time spent coordinating care, discussing management plans with involved caregivers. Management plans discussed with involved personnels. Medical decision making was of moderate to high complexity , patient's has multiple comorbidities. Medications reviewed and adjusted accordingly: Yes
[2017-03-22] MEDS: SILVER SULFADIAZINE 1% CREAM 25 GM TP SCH (20:05)
--- NOTE | 2017-03-22 21:29 | PROGRESS NOTE E ---
Progress Note NAME: ARPITA EUGENE : 1940 AGE: 76Y DATE: 03/22/2017 ROOM: 605 SUBJECTIVE: The patient has been seen multiple times on rounds today. The patient, who is hypotensive at baseline, has been more hypotensive with systolics in the 70s/30s. The case was discussed with Dr. Olivares with Nephrology. There is concern that, given the patient's pulmonary edema and hypotension, the patient cannot be adequately dialyzed. Additionally, there is concern for possible sepsis etiology, specifically from possible peritonitis or from a lower extremity cellulitis. The patient, himself, is quite the poor historian. Pending labs have been ordered on this patient, as well as cultures, as well as a stat echocardiogram, in an effort to ensure there is no tamponade. I have discussed this case, and ideally, the patient would be better served in a tertiary center, as the patient would be a better candidate for FACILITIES MANAGEMENT EXECUTIVE; however, the patient at this time, with his hypotension, is not stable for transportation. Therefore, will move the patient to ICU, place a central line to ensure access, as well as arterial line, and load the patient with broad-spectrum antibiotics, as well. Additionally, will add Levophed to maintain a MAP of greater than 65. Patient is agreeable to these procedures. REVIEW OF SYSTEMS: The rest of the review of systems is negative. MEDICATIONS: Medications were reviewed. OBJECTIVE: GENERAL: The patient is a very frail 76-year-old male, who is awake, alert. He is oriented to place, but does not appear to have full insight into the situation. He does not appear to be in respiratory distress. VITAL SIGNS: Last recorded vital signs as follows: Temperature is 97.3, pulse 64, respirations 20, blood pressure is 88/32. Oxygen saturation 97% on 2 liters nasal cannula. SKIN: Very pale. He does have a rash area across the trunk, which he states has been there for a while, with bilateral-appearing cellulitis of the lower extremities. He is not diaphoretic. HEENT: Pupils are reactive. There is evidence of periorbital edema, with JVP to the right ear. CARDIOVASCULAR: Heart is regular. No overt rub; however, her heart sounds are not loud, possibly muffled. ABDOMEN: No area of focal tenderness, but appears distended. Bowel sounds are present. EXTREMITIES: The patient does have evidence of chronic lower extremity edema. He has overall appearance of anasarca. DIAGNOSTICS: Lab values are as follows: Hematology obtained 03/21/2017: WBCs are 5.7, hemoglobin is 10.3, hematocrit is 31.3, platelet count is 83,000. CBC obtained on 03/22/2017 is pending. Chemistry obtained on 03/21/2017: Sodium is 131, potassium 5.5, chloride is 87, carbon dioxide 21, BUN 137, creatinine is 12.65. Glucose 76. Calcium is 8.1, magnesium is 2.6. Repeat chemistries from 03/22/2017 are currently pending. Blood cultures obtained on 03/21/2017 revealed no growth. Blood cultures obtained on 03/22/2017 are pending. IMPRESSION AND PLAN: 1. HYPERVOLEMIA, SECONDARY TO ESRD, STAGE . Unfortunately, the patient was hypotensive and was unable to have any fluid pulled there in dialysis. The patient may benefit from CRRT; however, again, the patient does need to be stabilized. The patient did have dialysis access placed today. Will proceed with plan noted above and follow. 2. PERSISTENT HYPOTENSION. 3. SEPSIS, UNCERTAIN OF THE EXACT UNDERLYING ETIOLOGY OF THIS. Awaiting repeat cultures, as well as chemistries. Will place the patient on broad spectrum antibiotic coverage. I did discuss these doses with Nephrology and will obtain abdominal imaging and chest x-ray and follow. The patient also appears to have bilateral lower extremity cellulitis, which could be a culprit of this. 4. PERSISTENT HYPOTENSION. Feel there may be an underlying sepsis process here; however, the patient is hypertensive outpatient. He is currently on midodrine. Will continue this. The patient did have adrenal studies outpatient, which were unremarkable. Will place the patient on pressors to maintain a MAP of greater than 65%. 5. HYPOTHYROIDISM. The patient's TSH is unremarkable. Continue levothyroxine. 6. ELECTROLYTE DERANGEMENT. Currently awaiting repeat chemistries, and follow. 7. TROPONIN LEAK. Currently awaiting a repeat troponin. DISPOSITION: The patient is a FULL CODE. Pending patient's symptomatology and diagnostic findings, will reevaluate as needed. The patient will be transferred to CCU for arterial line, central line access, vasopressors and for stabilization. Once the patient's blood pressures are in a satisfactory range and he is stable for transport, will discuss the case with tertiary center. Currently awaiting stat echocardiogram as well. Will obtain stat CT of the abdomen and pelvis and follow. Time spent on this critical care visit, including assessment, plan, physical examination, patient education, review of records and specialty collaboration is 60 minutes. DICTATING PHYSICIAN: HERBIE RIVERS NP [id number] PHY#: [id number] ID: [id number] JOB#: [id number] ACCT: [id number] cc: > MTDD
--- NOTE | 2017-03-22 22:45 | RADIOLOGY REPORT (SQ) ---
EXAM DESCRIPTION: CT ABD/PELVIS NO ORAL OR IV COMPLETED DATE/TIME: 03/22/2017 10:35 pm REASON FOR STUDY: Sepsis, disention, old PD Cath, fld collection? COMPARISON: None. TECHNIQUE: CT scan of the abdomen and pelvis performed without intravenous or oral contrast. Images reviewed with lung, soft tissue, and bone windows. Reconstructed coronal and sagittal MPR images revi ewed. All images stored on PACS. All CT scanners at this facility use dose modulation, iterative reconstruction, and/or weight based d osing when appropriate to reduce radiation dose to as low as reasonably achievable (ALARA). [facility]: Dose Right [facility]: CareDose [facility]: Dose Right [facility]: Teradose 4D [facility]: Smart [place] [employer] RADIATION DOSE: CT Rad equipment meets quality standard of care and radiation dose reduction techniq ues were employed. CTDIvol: 18.4 mGy. DLP: 990 mGy-cm.mGy. LIMITATIONS: None. FINDINGS: LOWER CHEST: Bilateral pleural effusions right greater than left. Air bronchograms bilate ral right greater than left. Consistent with bilateral pneumonia. NON-CONTRASTED LIVER, SPLEEN, ADRENALS: Evaluation limited by lack of IV contrast. No identified sign ificant masses. PANCREAS: No masses. No peripancreatic inflammatory changes. GALLBLADDER: Surgically absent. RIGHT KIDNEY AND URETER: No suspicious masses. Assessment limited by lack of IV contrast. No signif icant calcifications. No hydronephrosis or hydroureter. LEFT KIDNEY AND URETER: No suspicious masses. Assessment limited by lack of IV contrast. No signifi cant calcifications. No hydronephrosis or hydroureter. AORTA AND RETROPERITONEUM: No aneurysm. No retroperitoneal masses or adenopathy. BOWEL AND PERITONEAL CAVITY: No obvious masses or inflammatory changes. No free fluid. APPENDIX: Normal. PELVIS, BLADDER, AND ABDOMINAL WALL:No abnormal masses. No free fluid. Bladder normal. BONES: No significant findings. OTHER: PD catheter. IMPRESSION: Bilateral pneumonia with bilateral pleural effusions. No fluid in the abdomen. COMMENT: Quality ID # [id number]: Final reports with documentation of one or more dose reduction techniques (e.g., Automated exposure control, adjustment of the mA and/or kV according to patient size, use of iterative reconstruction technique) TECHNICAL DOCUMENTATION: JOB ID: [id number] [email or web address]- All Rights Reserved
[2017-03-22] MEDS: ATORVASTATIN CALCIUM 40 MG TABLET PO SCH (23:50)
[2017-03-22] MEDS: PIPERACILLIN SODIUM/TAZOBACTAM 2.25 GM in NORMAL SALINE 50 ML IV SCH (23:51)
[2017-03-22] MEDS: HEPARIN SOD (PORCINE) 5,000 UNIT/ML 1 ML SYRINGE SUBCUT SCH (23:52)
--- NOTE | 2017-03-22 23:53 | OPERATIVE REPORT E ---
Operative Report NAME: ARPITA EUGENE : 1940 AGE: 76Y DATE OF SURGERY: 03/22/2017 ROOM: 605 PREOPERATIVE DIAGNOSIS: PATIENT NEEDED A LINE FOR MONITORING BECAUSE OF GETTING PRESSORS. POSTOPERATIVE DIAGNOSIS: PATIENT NEEDED A LINE FOR MONITORING BECAUSE OF GETTING PRESSORS. PROCEDURE: Placement of A line through the right radial artery. SURGEON: JULIANO REMY M.D. ANESTHESIA: Local. INDICATION: This is a 76-year-old male who is on pressors and needed to have bettering monitoring and needed an A line. DESCRIPTION OF PROCEDURE: The patient is in the supine position, the right arm extended and the right wrist prepped and draped in usual sterile fashion. Local anesthesia infiltrated along the path of the right radial artery, which was palpable. Next, the artery was then punctured and a guidewire passed through the artery, and then the sheath then extended proximally into the artery. The Angiocath was then anchored to the skin with a 3-0 nylon. It was then connected to a pressure gauge, and a sterile dressing was placed over the catheter site. The patient tolerated the procedure well. DICTATING PHYSICIAN: JULIANO REMY M.D. [id number] PHY#: [id number] ID: [id number] JOB#: [id number] ACCT: [id number] cc:JULIANO REMY M.D. >
[2017-03-23] MEDS: ACETAMINOPHEN 325 MG TABLET PO PRN ×3 (01:47→21:54)
[2017-03-23] MEDS: ROPINIROLE HCL 2 MG TABLET PO SCH ×3 (01:48→21:55)
[2017-03-23 04:19] LABS: ABSOLUTE LYMPHOCYTES (AUTO) 0.4 10^3/uL (0.5-4.7); ABSOLUTE MONOCYTES (AUTO) 0.3 10^3/uL (0.1-1.4); ABSOLUTE NEUT (AUTO) 4.3 10^3/uL (1.7-8.2); BASOPHILS % (AUTO) 0.5 % (0-2); EOSINOPHILS % (AUTO) 0.5 % (0-6); HEMATOCRIT 28.3 % (37.9-51.0); HEMOGLOBIN 9.2 g/dL (13.5-17.0); INTERNATIONAL RATION (INR) 1.17; LYMPHOCYTES % (AUTO) 8.2 % (13-45); MEAN CORPUSCULAR HEMOGLOBIN 30.4 pg (27.0-33.4); MEAN CORPUSCULAR HGB CONC 32.5 g/dL (32.0-36.0); MEAN CORPUSCULAR VOLUME 93 fl (80-97); PROTHROMBIN TIME 15.7 SEC (11.4-15.4); RED BLOOD COUNT 3.03 10^6/uL (4.35-5.55); RED CELL DISTRIBUTION WIDTH 17.9 % (11.5-14.0); SEGMENTED NEUTROPHILS % (AUTO) 85.8 % (42-78); TOTAL CELLS COUNTED % (AUTO) 100 %
[2017-03-23 04:20] LABS: PARTIAL THROMBOPLASTIN TIME 42.9 SEC (23.5-35.8)
[2017-03-23 04:38] LABS: ANION GAP 16 (5-19); BLOOD UREA NITROGEN 80 mg/dL (7-20); CALCIUM 7.7 mg/dL (8.4-10.2); CARBON DIOXIDE 27 mmol/L (22-30); CHLORIDE 91 mmol/L (98-107); GLUCOSE 107 mg/dL (75-110); MAGNESIUM 2.2 mg/dL (1.6-2.3); PHOSPHORUS 5.9 mg/dL (2.5-4.5); POTASSIUM 4.5 mmol/L (3.6-5.0); SODIUM 134.3 mmol/L (137-145)
[2017-03-23 04:43] LABS: PLATELET COUNT 57 10^3/uL (150-450)
[2017-03-23] MEDS ORDERED: NOREPINEPHRINE BITARTRATE INJ/PF 4 MG/4 ML SDV IV ONE (05:40)
[2017-03-23] MEDS ORDERED: DOPAMINE HCL/DEXTROSE 5%-WATER 800 MG/250 ML RTUINJ IV ONE (05:42)
[2017-03-23] MEDS: LEVOTHYROXINE SODIUM 0.05 MG TABLET PO SCH (05:55)
[2017-03-23] MEDS: HEPARIN SOD (PORCINE) 5,000 UNIT/ML 1 ML SYRINGE SUBCUT SCH ×3 (05:55→21:55)
[2017-03-23] MEDS: MIDODRINE HCL 5 MG TABLET PO SCH ×3 (05:55→21:55)
[2017-03-23] MEDS ORDERED: NORMAL SALINE 1000 ML 250 ML IV ONE (06:00)
[2017-03-23 06:14] LABS: ARTERIAL BLOOD BASE EXCESS -0.8 mmol/L; ARTERIAL BLOOD H2CO3 1.72 mmol/L (1.05-1.35); ARTERIAL BLOOD HCO3 26.5 mmol/L (20-26); ARTERIAL BLOOD PH 7.29 (7.35-7.45); ARTERIAL BLOOD TOTAL CO2 28.2 mmol/L (23-27)
--- NOTE | 2017-03-23 06:14 | Progress Note ---
Provider Note Provider Note: called by nurse for bradycardia and hypotension. Ordered EKG, BMP, troponin, ABG. Patient appears to be in Mobitz type II. Have transitioned patient to dopamine and small amount of Levophed in addition to his vasopressin. Patient blood pressure responding appropriately. Have given him also a 250 mL normal saline bolus. Patient is awake and confused although quite pleasant he denies any pain at this time. Will attempt to titrate off Levophed and decreased patient's vasopressin as well. Have contacted [facility] for transfer for CRRT and ongoing assistance with patient's cardiac and renal needs. Dr. Gomez accepting.
[2017-03-23 06:18] LABS: ARTERIAL BLOOD FIO2 4L
[2017-03-23] MEDS ORDERED: DEXTROSE 5%-WATER 250 ML with NOREPINEPHRINE BITARTRATE 4 MG IV PRN ×2 (06:20)
[2017-03-23] MEDS ORDERED: DOPAMINE HCL 800 MG/D5W 250 ML IV PRN (06:30)
[2017-03-23] MEDS ORDERED: ATROPINE SULFATE INJ 1 MG/10 ML DISP.SYRIN IV ONE (06:45)
[2017-03-23] MEDS ORDERED: ALBUMIN HUMAN 50 ML IV SCH (07:00)
[2017-03-23] MEDS: DOCUSATE SODIUM 100 MG CAPSULE PO SCH ×2 (09:05→17:52)
[2017-03-23] MEDS: CALCIUM ACETATE 667 MG CAPSULE PO SCH ×3 (09:06→17:51)
[2017-03-23] MEDS: SILVER SULFADIAZINE 1% CREAM 25 GM TP SCH (09:07)
[2017-03-23] MEDS: PIPERACILLIN SODIUM/TAZOBACTAM 2.25 GM in NORMAL SALINE 50 ML IV SCH ×2 (09:09→21:55)
--- NOTE | 2017-03-23 09:23 | PDOC PROGRESS REPORT ---
Subjective Progress Note for:: 03/23/17 Subjective:: Patient was seen yesterday at around 6 PM. Discussed with hospitalist at that time and felt that patient would benefit from expeditious tertiary care transfer at that time. Patient looked very sick. Overnight it seems patient deteriorated. I was given a call by the nurse at around 5:30 in the morning saying that patient is noted to have some heart block however she told me that she was not very definite and could not print any strips for confirmation. Subsequently I talked with the hospitalist. It was felt that in the absence of sustained bradycardia, a temporary pacemaker is unlikely to help. She made some changes to patient's inotropic support and when I came to see the patient at around 7 AM, patient was noted to be in sinus rhythm, having a good waveform on arterial line and no evidence of any continuing heart block noted. I was also informed by the nurse that patient has now been accepted for transfer to tertiary care which was subsequently confirmed by the day hospitalist. At this point patient remains on several blood pressure medications to support his blood pressure. Continue with current inotropic regimen. Patient needing high flow oxygen to maintain oxygenation and currently on a nonrebreather mask. Patient has been noted to be intermittently confused and agitated. Reason For Visit: NEED FOR HD Physical Exam Vital Signs: Temp Pulse Resp BP Pulse Ox 98.2 F 93 14 128/67 H 99 03/23/17 08:00 03/23/17 08:00 03/23/17 08:00 03/23/17 08:00 03/23/17 08:00 Intake & Output 03/22/17 03/23/17 03/24/17 06:59 06:59 06:59 Intake Total 1300 Output Total 0 Balance 1300 Weight 111.3 kg 108.6 kg Exam: GENERAL: well-nourished and in no acute distress. Patient is alert but not oriented to place time or person. HEAD: Atraumatic, normocephalic. EYES: Pupils equal round and reactive to light, extraocular movements intact, sclera anicteric, conjunctiva are normal. ENT: TMs normal, nares patent, oropharynx clear without exudates. Moist mucous membranes. No oral ulcerations or bleeding gums noted NECK: supple without lymphadenopathy or JVD. Trachea is central. No cervical or axillary lymphadenopathy noted. Carotids are 2+ LUNGS: Breath sounds bibasilar fine crackles at bases. No significant dullness noted. CHEST: Palpation of chest wall shows no significant chest wall tenderness. 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 ABDOMEN: Seems firm with no significant tenderness being appreciated this a.m., hypoactive bowel sounds. No guarding, no rebound. No rigidity noted . No masses appreciated. EXTREMITIES: Pedal pulses are 1-2+, no calf tenderness noted, chronic dermatitis changes noted, superficial ulcerations noted with slight erythema. 1-2+ pedal edema noted. No clubbing or cyanosis. NEUROLOGICAL: Patient is alert but is not able to participate in neurological exam because of patient's current mental status PSYCH: Patient cannot participate in a neurologic and psych exam because of the patient's current mental status and decreased attention span. However patient noted to have no significant neurological deficit. SKIN: Chronic dermatitis changes noted. Superficial ulceration noted both lower extremity MUSCULOSKELETAL EXAM: No significant joint swelling noted. Results Laboratory Results: 03/23/17 03:58 03/23/17 03:58 03/22/17 03/22/17 03/23/17 16:45 16:45 00:05 WBC 5.4 RBC 3.20 L Hgb 9.7 L Hct 29.6 L MCV 93 MCH 30.2 MCHC 32.7 RDW 17.8 H Plt Count 71 L Seg Neutrophils % Lymphocytes % Monocytes % Eosinophils % Basophils % Absolute Neutrophils Absolute Lymphocytes Absolute Monocytes Absolute Eosinophils Absolute Basophils Carbonic Acid HCO3/H2CO3 Ratio ABG pH ABG pCO2 ABG pO2 ABG HCO3 ABG O2 Saturation ABG Base Excess FiO2 Sodium 133.8 L Potassium 3.8 Chloride 92 L Carbon Dioxide 29 Anion Gap 13 BUN 70 H Creatinine 7.05 H Est GFR ( Amer) 9 L Est GFR (Non-Af Amer) 8 L Glucose 70 L Lactic Acid 0.9 Calcium 7.9 L Phosphorus Magnesium Total Bilirubin 1.2 AST 40 ALT 37 Alkaline Phosphatase 111 Total Protein 5.7 L Albumin 3.4 L 03/23/17 03/23/17 03/23/17 03:58 03:58 05:58 WBC 5.0 RBC 3.03 L Hgb 9.2 L Hct 28.3 L MCV 93 MCH 30.4 MCHC 32.5 RDW 17.9 H Plt Count 57 L Seg Neutrophils % 85.8 H Lymphocytes % 8.2 L Monocytes % 5.0 Eosinophils % 0.5 Basophils % 0.5 Absolute Neutrophils 4.3 Absolute Lymphocytes 0.4 L Absolute Monocytes 0.3 Absolute Eosinophils 0.0 Absolute Basophils 0.0 Carbonic Acid 1.72 H HCO3/H2CO3 Ratio 15:1 ABG pH 7.29 L ABG pCO2 57.0 H ABG pO2 63.0 L ABG HCO3 26.5 H ABG O2 Saturation 89.0 L ABG Base Excess -0.8 FiO2 4L Sodium 134.3 L Potassium 4.5 Chloride 91 L Carbon Dioxide 27 Anion Gap 16 BUN 80 H Creatinine 8.68 H Est GFR ( Amer) 7 L Est GFR (Non-Af Amer) 6 L Glucose 107 Lactic Acid Calcium 7.7 L Phosphorus 5.9 H Magnesium 2.2 Total Bilirubin AST ALT Alkaline Phosphatase Total Protein Albumin 03/22/17 03/23/17 16:45 03:58 Troponin I 0.250 0.234 EKG Comments: EKG is reviewed shows very low voltage QRS and other EKG complexes. Heart rate seems satisfactory but rhythm cannot be accurately assessed. Seems patient has atrial fibrillation. Impressions: Abdomen/Pelvis CT 03/22/17 00:00 IMPRESSION: Bilateral pneumonia with bilateral pleural effusions. No fluid in the abdomen. Chest X-Ray 03/22/17 00:00 IMPRESSION: CENTRAL LINE POSITION DESCRIBED. NO PNEUMOTHORAX. NO SIGNIFICANT CHANGE IN APPEARANCE OF THE CHEST. Assessment & Plan - Diagnosis (1) Elevated troponin I level Is this a current diagnosis for this admission?: Yes (2) Sepsis Qualifiers: Sepsis type: sepsis due to unspecified organism Qualified Code(s): A41.9 - Sepsis, unspecified organism Is this a current diagnosis for this admission?: Yes (3) Abnormal electrocardiogram Is this a current diagnosis for this admission?: Yes (4) ESRD needing dialysis Is this a current diagnosis for this admission?: Yes (5) Hypotension Qualifiers: Hypotension type: other hypotension type Qualified Code(s): I95.89 - Other hypotension Is this a current diagnosis for this admission?: Yes - Notes Notes: Patient was seen yesterday at around 6 PM. Discussed with hospitalist at that time and felt that patient would benefit from expeditious tertiary care transfer at that time. Patient looked very sick. Overnight it seems patient deteriorated. I was given a call by the nurse at around 5:30 in the morning saying that patient is noted to have some heart block however she told me that she was not very definite and could not print any strips for confirmation. Subsequently I talked with the hospitalist. It was felt that in the absence of sustained bradycardia, a temporary pacemaker is unlikely to help. She made some changes to patient's inotropic support and when I came to see the patient at around 7 AM, patient was noted to be in sinus rhythm, having a good waveform on arterial line and no evidence of any continuing heart block noted. I was also informed by the nurse that patient has now been accepted for transfer to tertiary care which was subsequently confirmed by the day hospitalist. At this point patient remains on several blood pressure medications to support his blood pressure. Continue with current inotropic regimen. Patient needing high flow oxygen to maintain oxygenation and currently on a nonrebreather mask. Patient has been noted to be intermittently confused and agitated. Patient remains critically ill with septic shock needing multiple medications to support his blood pressure. Patient also has end-stage renal disease and needs dialysis for fluid removal. Currently CVP is noted to be high at around 20 cm. However did not feel patient will tolerate any diuresis at this point. Patient is maintaining his oxygenation but at high risk of decompensating respiratory de paz and may end up needing ventilatory support. Continue with aggressive antibiotic regimen. Feel that patient is getting all the support he can get at this institution and is really extremely sick and prognosis currently on the grave side. CODE STATUS discussed with patient's but wishes patient to be a full code at this point. - Time Time with patient: Greater than 35 minutes Medications reviewed and adjusted accordingly: Yes
--- NOTE | 2017-03-23 09:29 | EKG REPORT ---
SEVERITY:- ABNORMAL ECG - ATRIAL FIBRILLATION NONSPECIFIC IVCD WITH LAD LAD, CONSIDER LAFB OR INFERIOR INFARCT LOW VOLTAGE EKG ? ETIOLOGY : Confirmed by: Peyman Porter MD 23-Mar-2017 09:29:01
--- NOTE | 2017-03-23 09:29 | EKG REPORT ---
SEVERITY:- ABNORMAL ECG - ATRIAL FIBRILLATION NONSPECIFIC IVCD WITH LAD LOW VOLTAGE THROUGHOUT CONSIDER INFERIOR INFARCT : Confirmed by: Peyman Porter MD 23-Mar-2017 09:29:38
--- NOTE | 2017-03-23 09:30 | EKG REPORT ---
SEVERITY:- ABNORMAL ECG - SINUS RHYTHM RIGHT BUNDLE BRANCH BLOCK CONSIDER INFERIOR INFARCT : Confirmed by: Peyman Porter MD 23-Mar-2017 09:30:06
--- NOTE | 2017-03-23 09:44 | TRANSFER SUMMARY E ---
Transfer Summary NAME: ARPITA EUGENE : 1940 AGE: 76Y ADMITTED: 03/21/2017 TRANSFERRED: 03/24/2017 CODE STATUS: DO NOT RESUSCITATE. OUTPATIENT AND CONSULTING HVAC MAINTENANCE TECHNICIAN: Dr. Olivares CONSULTING DRILL PUNCH OPERATOR: Dr. Jackson DISCHARGE DIAGNOSES: 1. Hypervolemia secondary to end-stage renal disease stage 6. 2. Chronically persistent hypotension with a negative adrenal workup. 3. Bilateral healthcare-associated pneumonia. 4. Sepsis secondary to pneumonia. 5. Hypothyroidism. 6. Non-STEMI type 2. 7. Bilateral lower extremity cellulitis. 8. PD catheter failure with new PermCath placement. 9. Atrial fibrillation. CURRENT MEDICATIONS: Include: 1. Dopamine drip. 2. Zosyn renally dosed at 2.25 g q. 12 hours. 3. Vancomycin. 4. Midodrine 10 mg p.o. q. 8 hours. 5. Heparin 5000 units subcu q. 8 hours. 6. Lipitor 40 mg p.o. q. hour of sleep. 7. Tylenol 650 mg p.o. q. 4 hours p.r.n. 8. Requip 5 mg p.o. q. 12 hours. 9. PhosLo 1334 p.o. with meals. 10. Colace 100 mg p.o. b.i.d. 11. Levothyroxine 0.05 mg p.o. q. 6 a.m. DIET: Will be made n.p.o. for transport. ACTIVITY: Bedrest. DIAGNOSTICS: Hematology obtained on 03/23/2017: WBCs are 5.0, hemoglobin is 9.2, hematocrit is 28.3, platelet count is 57,000. Coagulation obtained on 03/23/2017: PT is 50.7, INR is 1.17. ABG obtained on 03/23/2017: PH is 7.29, PCO2 is 57, PO2 is 63, bicarb is 26.5. Chemistry obtained on 03/23/2017: Sodium is 134, potassium 4.5, chloride is 91, carbon dioxide is 27, BUN 80, creatinine is 0.868, glucose 107. Lactic acid is 0.9, calcium is 7.7, phosphorus 5.9, magnesium is 2.2, bilirubin is 1.2. AST 40, ALT is 37, Alk phos 111, CK 129, CK-MB is 26. Troponin is 0.250 on a downward trend. Total protein 5.7, albumin 3.4. TSH is 3.96. Urinalysis obtained on 03/21/2017: Color yellow, appearance cloudy, pH is 5.0, specific gravity is 1.016, protein 100. Glucose negative, ketones negative, occult blood small, nitrate negative, bilirubin small, urobilinogen is negative, leukocyte esterase is trace, RBCs 1, bacteria trace, epithelial squamous cells less than 1. Microbiology: Blood cultures obtained on 03/21/2017: The first set reveals no growth. Second sets are pending. Chest x-ray obtained on 03/21/2017 reveals cardiomegaly with no acute consolidations or pleural effusion identified. CT of the abdomen and pelvis obtained on 03/22/2017 reveals bilateral pneumonia with bilateral pleural effusions. Chest x-ray obtained on 03/22/2017 reveals central line position inappropriate with the tip in the superior vena cava. No significant change within the chest. Echocardiogram obtained on 03/22/2017 reveals moderate left ventricular hypertrophy with suggested pseudonormalization of the left ventricular relaxation associated with grade 2/4 moderate diastolic dysfunction. The right ventricle is moderately dilated with moderate pulmonary hypertension by echo. Right ventricular systolic pressure is estimated to be between 40 and 50 with a minimal pericardial effusion. EKG obtained on 03/21/2017 reveals sinus rhythm with a right bundle branch block. EKG obtained on 03/23/2017 reveals atrial fibrillation. PHYSICAL EXAMINATION: GENERAL: On examination, the patient is a frail, chronically ill-appearing 76-year-old male who is awake, alert. He is oriented to place, but not full oriented to situation. The patient is somewhat groggy, does not appear to be distressed. VITAL SIGNS: Temperature is 97.6, pulse 96, respirations 20, blood pressure is 117/63, oxygen saturation is 92% on 2 L nasal cannula. SKIN: Frail. He is pale, not diaphoretic. HEENT: Pupils are reactive. The patient does have JVP to the right clavicle. Mucous membranes are moist. Pupils are constricted equally. HISTORY OF PRESENT ILLNESS: The patient is a 76-year-old male with a past medical history of end-stage renal disease and peritoneal dialysis. The patient presented to the emergency department due to a malfunctioning PD catheter. The patient has recently been discharged from [facility] on Saturday and stated that since he had been home his PD catheter had been leaking. The patient had been nauseated and the patient has been arranged for hemodialysis by his outpatient automotive teacher. The case was discussed with Dr. Leighton Brown who was agreeable to PermCath placement, and so the patient was accepted and admitted by the hospitalist on , 03/22/2017, for the patient to have a PermCath placed and to go to hemodialysis. The patient gave reports of persistent hypotension. The patient is actually on midodrine chronically on an outpatient basis. The patient has been worked up by his automotive teacher for this and adrenal workup had been unremarkable. The patient stated that his systolic baseline was in the high 90s and the patient was admitted to the hospitalist service with nephrology consultation. HOSPITAL COURSE: The patient was admitted to telemetry unit. The patient was seen by Dr. Brown and did have a PermCath placement in his right groin. The patient was then subsequently sent to dialysis where he was found to be persistently hypotensive with systolic blood pressures in the 70s. The patient was maintaining a MAP in the 40s. The patient was actually given fluid and dialysis and was unable to pull fluid in spite of the patient being persistently volume overloaded. The patient was seen numerous times throughout the day and the patient's appearance did overall appear to be decompensating. The patient did not have a white count presentation and the patient's electrolytes did suggest a potassium of 5.5 and a creatinine of 12.65, and the patient was in great need for hemodialysis. However, the patient was unable to tolerate this procedure. The patient was transferred to ICU as there was fear for an underlying sepsis state. The patient did have an arterial line placed, a central line placed to ensure access. The patient was started on Zosyn, vancomycin for possible bilateral lower extremity cellulitis, and given the patient's malfunctioning PD catheter, there was concern for possible peritoneal source. The patient underwent a CT of the abdomen and pelvis without contrast, which found bilateral pneumonia as well as pleural effusions. The patient fortunately was oxygenating well on just 2 L. Given the patient's hypotension and soft heart sounds, a STAT echocardiogram was performed that did not show any significant effusion and without tamponade. The patient was seen on consult by Cardiology given his uptrending troponin, and the patient did go into atrial fibrillation. Initially, the patient was started on vasopressin and Dominic-Synephrine as per recommendations of Cardiology, and the patient remains persistently hypotensive and became significantly bradycardic down into the 20s and 30s. Subsequently, the patient was transitioned over to dopamine with an excellent response and the patient's MAPs improved significantly by arterial line readings. The patient does have a significant discrepancy from manual cuff versus arterial line of about 20 mmHg. The patient still remains volume overload with evidence of JVP and crackles on auscultation. The patient is significantly oliguric given his ESRD and the patient only urinates about every 48 hours. However, the patient was felt too unstable for hemodialysis and is recommended CRRT, which cannot be performed in this facility. The facility's next dialysis time would be Saturday with hemodialysis, and again, uncertain if the patient will be stable for this. Therefore, the patient has been accepted for transfer to [facility] where he does have established providers that are aware of the patient as he was just discharged from the facility about a week ago. TRANSFERRING PLANNING: The patient will be received at the services of [facility]. As always, the hospitalist at [facility] would like to thank the team at [facility] for graciously participating in the care of this patient. Time spent on this transfer including assessment, plan, physical examination, patient education, review of records, multispecialty collaboration is 40 minutes. DICTATING PHYSICIAN: HERBIE RIVERS NP [id number] PHY#: [id number] ID: [id number] JOB#: [id number] ACCT: [id number] cc:HERBIE RIVERS NP > [facility]
[2017-03-23 20:20] LABS: AMORPHOUS SEDIMENT,URINE TRACE /HPF; BILIRUBIN,URINE NEGATIVE (NEGATIVE); COLOR,URINE AMBER; GLUCOSE, URINE NEGATIVE (NEGATIVE); KETONES,URINE NEGATIVE (NEGATIVE); LEUKOCYTE ESTERASE,URINE SMALL (NEGATIVE); NITRITE,URINE NEGATIVE (NEGATIVE); PROTEIN,URINE >=500 mg/dL (NEGATIVE); URINE SPECIFIC GRAVITY 1.019; UROBILINOGEN,URINE NEGATIVE mg/dL (<2.0)
[2017-03-23 20:21] LABS: APPEARANCE,URINE SLIGHTLY-CLOUDY
[2017-03-23] MEDS: ATORVASTATIN CALCIUM 40 MG TABLET PO SCH (21:55)
[2017-03-24] MEDS ORDERED: DIPHENHYDRAMINE HCL 50 MG/ML VIAL ONE (00:27)
[2017-03-24] MEDS ORDERED: OXYCODONE HCL IR 5 MG TABLET ONE (00:28)
[2017-03-24] MEDS ORDERED: DIPHENHYDRAMINE HCL 50 MG/ML VIAL IV ONE (00:45)
[2017-03-24] MEDS ORDERED: OXYCODONE HCL IR 5 MG TABLET PO ONE (00:45)
[2017-03-24] MEDS: HEPARIN SOD (PORCINE) 5,000 UNIT/ML 1 ML SYRINGE SUBCUT SCH ×2 (05:43→14:22)
[2017-03-24] MEDS: MIDODRINE HCL 5 MG TABLET PO SCH ×2 (05:44→14:21)
[2017-03-24] MEDS: LEVOTHYROXINE SODIUM 0.05 MG TABLET PO SCH (05:45)
[2017-03-24 06:23] LABS: HEMATOCRIT 32.8 % (37.9-51.0); HEMOGLOBIN 10.4 g/dL (13.5-17.0); MEAN CORPUSCULAR HEMOGLOBIN 29.8 pg (27.0-33.4); MEAN CORPUSCULAR HGB CONC 31.8 g/dL (32.0-36.0); MEAN CORPUSCULAR VOLUME 94 fl (80-97); RED BLOOD COUNT 3.49 10^6/uL (4.35-5.55); RED CELL DISTRIBUTION WIDTH 17.7 % (11.5-14.0); WHITE BLOOD COUNT 5.7 10^3/uL (4.0-10.5)
[2017-03-24 06:35] LABS: ANION GAP 16 (5-19); BLOOD UREA NITROGEN 90 mg/dL (7-20); CALCIUM 7.8 mg/dL (8.4-10.2); CARBON DIOXIDE 26 mmol/L (22-30); CHLORIDE 92 mmol/L (98-107); GLUCOSE 85 mg/dL (75-110); MAGNESIUM 2.2 mg/dL (1.6-2.3); POTASSIUM 4.5 mmol/L (3.6-5.0)
[2017-03-24 07:15] LABS: PLATELET COUNT 67 10^3/uL (150-450)
[2017-03-24] MEDS: CALCIUM ACETATE 667 MG CAPSULE PO SCH ×2 (08:34→11:44)
[2017-03-24] MEDS ORDERED: DEXTROSE 5%-WATER 250 ML with VASOPRESSIN 100 UNIT IV PRN ×2 (09:29)
[2017-03-24] MEDS: DOCUSATE SODIUM 100 MG CAPSULE PO SCH (10:18)
[2017-03-24] MEDS: PIPERACILLIN SODIUM/TAZOBACTAM 2.25 GM in NORMAL SALINE 50 ML IV SCH (10:18)
[2017-03-24] MEDS: ROPINIROLE HCL 2 MG TABLET PO SCH (10:19)
[2017-03-24] MEDS: SILVER SULFADIAZINE 1% CREAM 25 GM TP SCH (10:25)
[2017-03-24] MEDS: ACETAMINOPHEN 325 MG TABLET PO PRN (11:44)
--- NOTE | 2017-03-24 12:08 | PROGRESS NOTE E ---
Progress Note NAME: ARPITA EUGENE : 1940 AGE: 76Y DATE: 03/23/2017 ROOM: 605 SUBJECTIVE: The patient was seen earlier today on rounds. The patient has been accepted by [facility] for [facility] and a transfer summary has been dictated. The patient did relatively well overnight. His MAPs improved. Fortunately, once the A-line was placed, did have more pressure to work with than initially thought. The patient still appears hypervolemic. He is awake and alert. The patient has been oxygenating relatively well. When discussed with the patient, he does not voice any specific concerns at this time. REVIEW OF SYSTEMS: The rest of review of systems negative. MEDICATIONS: Medications reviewed. OBJECTIVE: GENERAL: The patient is a 76-year-old male who is awake, alert. He is oriented to person, place, but not fully oriented to situation. He does get confused with details. VITAL SIGNS: Temperature is 97.4, pulse is 66, respirations 16, blood pressure 95/77, oxygen saturation is 93% on 2 L nasal cannula. SKIN: Pale. He is not diaphoretic. HEENT: Pupils are reactive. The patient does have JVP to the right ear. Mucous membranes moist. CVS: Heart is regular. CHEST: Rancorous in upper lung bourgeois with bilateral basilar crackles. ABDOMEN: Firm, distended. No area of focal tenderness. EXTREMITIES: No cyanosis. All 4 extremities are appropriately warm. Lower extremity cellulitis does appear improved. PSYCHIATRIC: Appropriate affect, pleasant mood. DIAGNOSTIC STUDIES: Hematology obtained on 03/23/2017: WBCs are 5.0, hemoglobin is 9.2, hematocrit is 28.3, platelet count is 87,000. Chemistry obtained on 03/23/2017: Sodium is 143, potassium 4.5, chloride is 91, carbon dioxide 27, BUN 80, creatinine is 0.68, glucose 107, calcium is 7.7, phosphorus 5.9, magnesium is 2.2. ASSESSMENT/PLAN: 1. Hypervolemia secondary to end-stage renal disease stage 6. The patient has not been stable enough for dialysis. The patient is currently requiring vasopressors. Ideally, the patient would benefit from CRRT, currently awaiting a bed at [facility]. 2. Chronically-persistent hypertension with a negative adrenal workup. This has been exacerbated by the patient's sepsis. Continue his Minitran. 3. Bilateral health care associated pneumonia. We will continue broad spectrum antibiotic coverage and encourage incentive spirometry and flutter valve. 4. Sepsis secondary to HCAP. 5. Hypothyroidism. The patient's thyroid studies are unremarkable. Continue medication. 6. Non-STEMI type II secondary to patient's illnesses, do appreciate Cardiology input on this. 7. Bilateral lower extremity cellulitis, overall appears improved. 8. Atrial fibrillation continued. Do appreciate Cardiology input on this. 9. PD catheter failure with new PermCath placement. The patient's CT of the abdomen did not show any edema. DISPOSITION: The patient is a full code. Given the patient's symptomatology and diagnostic findings, we will reevaluate as needed. I have made numerous attempts to contact the patient's spouse at her request; however, both phones go directly to voicemail. Time spent on this followup including assessment, plan, physical examination, patient education and review of records is 45 minutes. DICTATING PHYSICIAN: HERBIE RIVERS NP [id number] PHY#: [id number] ID: [id number] JOB#: [id number] ACCT: [id number] cc: >
[2017-03-24 16:24] VITALS: BP 140/73
--- NOTE | 2017-03-24 16:28 | PDOC PROGRESS REPORT ---
Subjective Progress Note for:: 03/24/17 Subjective:: Patient general status has improved significantly. She is now more alert and is able to converse. However has been noted to have intermittent confusion. Patient's inotropes are being slowly withdrawn. Currently patient on small dose of vasopressin. Have asked nurses to continue with low-dose dopamine. Continue with current inotropic regimen. Patient needing high flow oxygen to maintain oxygenation and currently on a nonrebreather mask. Patient has been noted to be intermittently confused and agitated. Telemetry strips shows flutter fibrillation. Reason For Visit: NEED FOR HD Physical Exam Vital Signs: Temp Pulse Resp BP Pulse Ox 97.7 F 94 24 H 129/63 H 97 03/24/17 12:00 03/24/17 12:00 03/24/17 14:00 03/24/17 14:00 03/24/17 14:00 Intake & Output 03/23/17 03/24/17 03/25/17 06:59 06:59 06:59 Intake Total 1300 1304 474 Output Total 0 20 Balance 1300 1284 474 Weight 108.6 kg 114.1 kg Exam: GENERAL: well-nourished and in no acute distress. Generally more alert and less confused than yesterday and is able to respond appropriately. HEAD: Atraumatic, normocephalic. EYES: Pupils equal round and reactive to light, extraocular movements intact, sclera anicteric, conjunctiva are normal. ENT: TMs normal, nares patent, oropharynx clear without exudates. Moist mucous membranes. No oral ulcerations or bleeding gums noted NECK: supple without lymphadenopathy or JVD. Trachea is central. No cervical or axillary lymphadenopathy noted. Carotids are 2+ LUNGS: Breath sounds bibasilar fine crackles at bases. No significant dullness noted. CHEST: Palpation of chest wall shows no significant chest wall tenderness. HEART: [place] NURSE AIDE, No PSH, 2/6 INES aortic area, 1/6 dumont systolic murmur mitral area, rubs or gallops. ABDOMEN: Seems firm with no significant tenderness being appreciated this a.m., hypoactive bowel sounds. No guarding, no rebound. No rigidity noted . No masses appreciated. EXTREMITIES: Pedal pulses are 1-2+, no calf tenderness noted, chronic dermatitis changes noted, superficial ulcerations noted with slight erythema. 1-2+ pedal edema noted. No clubbing or cyanosis. NEUROLOGICAL: Patient is alert no significant neurologic deficit noted. PSYCH: Patient alert and oriented. Mood seems normal at this time.. SKIN: Chronic dermatitis changes noted. Superficial ulceration noted both lower extremity MUSCULOSKELETAL EXAM: No significant joint swelling noted. Results Laboratory Results: 03/24/17 05:55 03/24/17 05:55 03/23/17 03/24/17 03/24/17 19:50 05:55 05:55 WBC 5.7 RBC 3.49 L Hgb 10.4 L Hct 32.8 L MCV 94 MCH 29.8 MCHC 31.8 L RDW 17.7 H Plt Count 67 L Sodium 134.0 L Potassium 4.5 Chloride 92 L Carbon Dioxide 26 Anion Gap 16 BUN 90 H Creatinine 9.87 H Est GFR ( Amer) 6 L Est GFR (Non-Af Amer) 5 L Glucose 85 Calcium 7.8 L Magnesium 2.2 Urine Color JEAN Urine Appearance SLIGHTLY-CLOUDY Urine pH 5.0 Ur Specific [place] 1.019 Urine Protein >=500 H Urine Glucose (UA) NEGATIVE Urine Ketones NEGATIVE Urine Blood SMALL H Urine Nitrite NEGATIVE Ur Leukocyte Esterase SMALL H Urine WBC (Auto) 29 Urine RBC (Auto) 13 03/22/17 03/23/17 16:45 03:58 Troponin I 0.250 0.234 EKG Comments: Telemetry strips reviewed shows atrial flutter fibrillation. No bradycardia arrhythmias noted. Heart rate in the 90s and stable. Impressions: Abdomen/Pelvis CT 03/22/17 00:00 IMPRESSION: Bilateral pneumonia with bilateral pleural effusions. No fluid in the abdomen. Chest X-Ray 03/22/17 00:00 IMPRESSION: CENTRAL LINE POSITION DESCRIBED. NO PNEUMOTHORAX. NO SIGNIFICANT CHANGE IN APPEARANCE OF THE CHEST. Assessment & Plan - Diagnosis (1) Elevated troponin I level Is this a current diagnosis for this admission?: Yes (2) Sepsis Qualifiers: Sepsis type: sepsis due to unspecified organism Qualified Code(s): A41.9 - Sepsis, unspecified organism Is this a current diagnosis for this admission?: Yes (3) Abnormal electrocardiogram Is this a current diagnosis for this admission?: Yes (4) ESRD needing dialysis Is this a current diagnosis for this admission?: Yes (5) Hypotension Qualifiers: Hypotension type: other hypotension type Qualified Code(s): I95.89 - Other hypotension Is this a current diagnosis for this admission?: Yes - Notes Notes: Patient has shown significant improvement in in general condition, blood pressure. Feel that based on his response, presentation, most likely diagnosis is sepsis with septic shock. Currently has improved. Patient does have troponin I elevation but could well be from sepsis and hypotension. Patient would probably need a heart catheterization at some point. Patient is noted to have atrial fibrillation but right now I feel there is significant contraindication to chronic anticoagulation and since multiple acute procedures may need to be performed, this is being withheld at this point. Patient would need dialysis. Currently awaiting beds bed at [facility]. Overall patient remains critically ill, is still needing vasopressors and close monitoring of his cardiac status. Will continue to follow patient. Dr. Hernández to follow patient in a.m.. - Time Time with patient: Greater than 35 minutes - Patient was full code until yesterday but today I note that a DNR status has been written in the chart. Continue current supportive care. Overall prognosis is guarded. Medications and drips were reviewed. Medications reviewed and adjusted accordingly: Yes
== END 2017-03-24 17:04 | disposition short-term general hospital (02) | DRG 871 ==
LOC: ER 13:51 → EH 19:56 → 4W 23:10 → ICU 03-22 17:35
PROVIDERS: ADMIT Family Medicine; ATTEND Family Medicine
PROC: 02HV33Z Insertion of Infusion Device into Superior Vena Cava, Percutaneous Approach (ICD-10-PCS; principal; 2017-03-22)
DX: A41.9 Sepsis, unspecified organism (principal); N18.6 End stage renal disease; R65.21 Severe sepsis with septic shock; J18.9 Pneumonia, unspecified organism; I21.A1 Myocardial infarction type 2; L03.116 Cellulitis of left lower limb; L03.115 Cellulitis of right lower limb; T85.9XXA Unspecified complication of internal prosthetic device, implant and graft, initial encounter; E03.9 Hypothyroidism, unspecified; E87.5 Hyperkalemia; I50.9 Heart failure, unspecified; I95.89 Other hypotension; E78.5 Hyperlipidemia, unspecified; I48.91 Unspecified atrial fibrillation; R19.00 Intra-abdominal and pelvic swelling, mass and lump, unspecified site; Z99.2 Dependence on renal dialysis; Z79.899 Other long term (current) drug therapy; Z75.1 Person awaiting admission to adequate facility elsewhere
CPT/HCPCS: 36415; 36556; 71045; 71046; 74019; 74176; 76937; 80048; 80053; 81001; 82550; 82553; 82803; 83605; 83735; 83880; 84100; 84443; 84484; 85025; 85027; 85379; 85610; 85730; 87040; 87086; 93005; 93010; 93306; 99285; C1752; G8978-GP; G8979-GP; J1200; J1265; J1644; J2370; J2543; J3370; J3490; J7030; J7060